=== PATIENT | female | born 1980 | race Caucasian/White ===

== ENCOUNTER 2020-01-20 07:27 | Outpatient (REF) | payer OTHER, SELFPAY ==
[2020-01-20 08:26] LABS: MANUAL DIFF FLAG NO
[2020-01-20 08:28] LABS: Basophils Percent Auto 0.7 % (0-2); Eosinophils Absolute Auto 0.2 X10*3/uL (0.0-0.4); Eosinophils Percent Auto 2.6 % (0-4); Hematocrit 39.3 % (37-47); Hemoglobin 12.9 g/dl (12.0-16.0); Imm Gran Abs Auto 0.01 X10*3/uL (0.00-0.03); Imm Gran Pct Auto 0.2 % (0.0-0.4); Lymphocytes Absolute Auto 2.2 X10*3/uL (1.2-4.9); Lymphocytes Percent Auto 37.8 % (20-40); Mean Corpuscular HGB Conc 32.8 g/dl (31.0-35.0); Mean Corpuscular Hemoglobin 28.9 pg (27.0-33.0); Mean Corpuscular Volume 87.9 fL (80-98); Mean Platelet Volume 10.4 fL (9.4-12.3); Monocytes Absolute Auto 0.4 X10*3/uL (0.1-1.2); Monocytes Percent Auto 6.2 % (2-11); Neutrophils Absolute Auto 3.1 X10*3/uL (2.0-8.3); Neutrophils Percent Auto 52.5 % (45-73); Platelet Count 170 X10*3/uL (160-400); Red Blood Count 4.47 X10*6/uL (4.20-5.50); Red Cell Distribution Width 13.7 % (11.0-16.0); White Blood Count 5.9 X10*3/uL (4.8-10.8)
[2020-01-20 08:43] LABS: Glucose Urine UA NEG (NEG); Leukocyte Esterase Urine NEG (NEG); Nitrite Urine NEG (NEG); PH 7.5 (5.0-8.0); Urine Blood NEG (NEG); Urine Ketones NEG (NEG); Urine Protein NEG (NEG-TRACE)
[2020-01-20 08:46] LABS: Appearance Urine HAZY; Color Urine YELLOW
[2020-01-20 08:58] LABS: Alanine Aminotransferase 13 U/L (0-31); Alkaline Phosphatase 74 U/L (39-117); Anion Gap 9 (12-20); Aspartate Amino Transferase 14 U/L (5-31); Bilirubin Total 0.4 mg/dL (0.0-1.0); Blood Urea Nitrogen 13 mg/dL (9-16); Calcium 8.8 mg/dL (8.4-10.2); Carbon Dioxide 34 mmol/L (22-29); Chloride 100 mmol/L (96-108); Cholesterol 232 mg/dL; Estimated Glomerular Filt Rate > 60; Glucose Random 84 mg/dL (60-115); HDL Cholesterol 79 mg/dL; LDL Cholesterol Calculated 126 mg/dl; Sodium 139 mmol/L (135-145); Total Protein 6.9 g/dL (6.5-8.0); Triglycerides 139 mg/dL
== END 2020-01-20 07:28 | disposition home or self-care (01) ==
LOC: HO.LAB 07:27
PROVIDERS: PCP Internal Medicine; Visit Provider Internal Medicine
DX: G47.33 Obstructive sleep apnea (adult) (pediatric) (principal); J45.21 Mild intermittent asthma with (acute) exacerbation; D69.6 Thrombocytopenia, unspecified; Z00.00 Encounter for general adult medical examination without abnormal findings; D70.8 Other neutropenia
CPT/HCPCS: 36415; 80053; 80061; 81003; 85025

== ENCOUNTER → 2020-02-28 08:12 | Outpatient (BNVA) | payer OTHER, SELFPAY | PROVIDERS: Visit Provider Physician Assistant | DX: Z76.89 Persons encountering health services in other specified circumstances (principal) ==

== ENCOUNTER → 2020-03-20 08:23 | Outpatient (BNVA) | payer OTHER, SELFPAY | PROVIDERS: PCP Internal Medicine; Referring Provider Internal Medicine; Visit Provider Dietitian, Registered | DX: Z76.89 Persons encountering health services in other specified circumstances (principal) ==

== ENCOUNTER → 2020-05-01 13:37 | Outpatient (BNVA) | payer OTHER, SELFPAY | PROVIDERS: PCP Internal Medicine; Visit Provider Dietitian, Registered ==

== ENCOUNTER 2021-01-29 10:16 | Outpatient (REF) | payer OTHER, SELFPAY ==
[2021-01-29 10:19] LABS: MANUAL DIFF FLAG NO
[2021-01-29 10:28] LABS: Basophils Percent Auto 0.6 % (0-2); Eosinophils Absolute Auto 0.1 X10*3/uL (0.0-0.4); Eosinophils Percent Auto 2.8 % (0-4); Hematocrit 37.2 % (37-47); Hemoglobin 12.1 g/dl (12.0-16.0); Imm Gran Abs Auto 0.01 X10*3/uL (0.00-0.03); Imm Gran Pct Auto 0.2 % (0.0-0.4); Lymphocytes Percent Auto 39.4 % (20-40); Mean Corpuscular HGB Conc 32.5 g/dl (31.0-35.0); Mean Corpuscular Hemoglobin 28.7 pg (27.0-33.0); Mean Corpuscular Volume 88.2 fL (80-98); Mean Platelet Volume 10.9 fL (9.4-12.3); Monocytes Absolute Auto 0.3 X10*3/uL (0.1-1.2); Monocytes Percent Auto 6.1 % (2-11); Neutrophils Absolute Auto 2.5 X10*3/uL (2.0-8.3); Neutrophils Percent Auto 50.9 % (45-73); Platelet Count 183 X10*3/uL (160-400); Red Blood Count 4.22 X10*6/uL (4.20-5.50); Red Cell Distribution Width 13.7 % (11.0-16.0)
[2021-01-29 10:51] LABS: Alanine Aminotransferase 12 U/L (0-31); Albumin Level 4.1 g/dL (3.5-5.0); Alkaline Phosphatase 84 U/L (39-117); Anion Gap 12 (12-20); Aspartate Amino Transferase 14 U/L (5-31); Bilirubin Total 0.4 mg/dL (0.0-1.0); Blood Urea Nitrogen 12 mg/dL (9-16); Carbon Dioxide 28 mmol/L (22-29); Chloride 101 mmol/L (96-108); Cholesterol 231 mg/dL; Estimated Glomerular Filt Rate > 60; Glucose Fasting 90 mg/dL (60-99); HDL Cholesterol 82 mg/dL; LDL Cholesterol Calculated 129 mg/dl; Potassium 3.7 mmol/L (3.3-5.1); Sodium 137 mmol/L (135-145); Total Protein 7.1 g/dL (6.5-8.0); Triglycerides 102 mg/dL
[2021-01-29 11:14] LABS: Appearance Urine CLEAR; Color Urine YELLOW; Glucose Urine UA NEG (NEG); Leukocyte Esterase Urine NEG (NEG); Nitrite Urine NEG (NEG); PH 7.5 (5.0-8.0); Urine Blood NEG (NEG); Urine Ketones NEG (NEG); Urine Protein NEG (NEG-TRACE)
== END 2021-01-29 10:17 | disposition home or self-care (01) ==
LOC: HO.LNP 10:16
PROVIDERS: Visit Provider Internal Medicine
DX: Z00.00 Encounter for general adult medical examination without abnormal findings (principal); D70.8 Other neutropenia; D69.6 Thrombocytopenia, unspecified
CPT/HCPCS: 80053; 80061; 81003; 85025

== ENCOUNTER 2022-02-11 11:21 | Outpatient (REF) | payer OTHER, SELFPAY ==
[2022-02-11 11:24] LABS: MANUAL DIFF FLAG NO
[2022-02-11 12:03] LABS: Basophils Percent Auto 0.4 % (0-2); Eosinophils Absolute Auto 0.2 X10*3/uL (0.0-0.4); Eosinophils Percent Auto 2.6 % (0-4); Hematocrit 38.3 % (37.0-47.0); Hemoglobin 12.1 g/dl (12.0-16.0); Imm Gran Abs Auto 0.02 X10*3/uL (0.00-0.03); Imm Gran Pct Auto 0.3 % (0.0-0.4); Lymphocytes Absolute Auto 2.6 X10*3/uL (1.2-4.9); Lymphocytes Percent Auto 37.8 % (20-40); Mean Corpuscular HGB Conc 31.6 g/dl (31.0-35.0); Mean Corpuscular Hemoglobin 27.3 pg (27.0-33.0); Mean Corpuscular Volume 86.5 fL (80.0-98.0); Mean Platelet Volume 11.1 fL (9.4-12.3); Monocytes Absolute Auto 0.5 X10*3/uL (0.1-1.2); Monocytes Percent Auto 7.1 % (2-11); Neutrophils Absolute Auto 3.6 x10*3/uL (2.0-8.3); Neutrophils Percent Auto 51.8 % (45-73); Platelet Count 231 X10*3/uL (160-400); Red Blood Count 4.43 X10*6/uL (4.20-5.50); White Blood Count 6.9 X10*3/uL (4.8-10.8)
[2022-02-11 12:13] LABS: Appearance Urine Cloudy; Color Urine Yellow; Glucose Urine UA Negative (Negative); Leukocyte Esterase Urine Trace (Negative); Nitrite Urine Negative (Negative); PH 6.5 (5.0-9.0); Specific Gravity - Urine 1.025 (1.005-1.025); UMIC TRIGGER UA YES; Urine Blood Negative (Negative); Urine Ketones Negative (Negative); Urine Protein Negative (Neg-Trace)
[2022-02-11 12:24] LABS: Bacteria Urine Trace (None Seen); Hyaline Casts Urine 0-2 /LPF (0-2); RBC Urine 0-2 /HPF (0-2); WBC Urine 0-5 /HPF (0-5)
[2022-02-11 12:49] LABS: Alanine Aminotransferase 14 U/L (0-31); Albumin Level 4.1 g/dL (3.5-5.0); Alkaline Phosphatase 118 U/L (39-117); Anion Gap 18 (12-20); Aspartate Amino Transferase 13 U/L (5-31); Bilirubin Total 0.3 mg/dL (0.0-1.0); Blood Urea Nitrogen 13 mg/dL (9-16); Carbon Dioxide 25 mmol/L (22-29); Chloride 99 mmol/L (96-108); Cholesterol 233 mg/dL; Estimated Glomerular Filt Rate > 60; Glucose Fasting 92 mg/dL (60-99); HDL Cholesterol 84 mg/dL; LDL Cholesterol Calculated 128 mg/dl; Potassium 3.9 mmol/L (3.3-5.1); Sodium 138 mmol/L (135-145); Total Protein 7.3 g/dL (6.5-8.0); Triglycerides 106 mg/dL
== END 2022-02-11 11:22 | disposition home or self-care (01) ==
LOC: HO.LNP 11:21
PROVIDERS: Visit Provider Internal Medicine
DX: Z00.00 Encounter for general adult medical examination without abnormal findings (principal); D69.6 Thrombocytopenia, unspecified
CPT/HCPCS: 80053; 80061; 81001; 85025

== ENCOUNTER 2023-02-12 11:52 | Outpatient (REF) | payer OTHER, SELFPAY ==
[2023-02-12 11:56] LABS: MANUAL DIFF FLAG NO
[2023-02-12 12:10] LABS: Appearance Urine Cloudy; Color Urine Yellow; Glucose Urine UA Negative (Negative); Leukocyte Esterase Urine Negative (Negative); Nitrite Urine Negative (Negative); Specific Gravity - Urine 1.025 (1.005-1.025); Urine Blood Negative (Negative); Urine Ketones Trace mg/dL (Negative); Urine Protein Negative (Neg-Trace)
[2023-02-12 12:14] LABS: Bacteria Urine 1+ (None Seen); Hyaline Casts Urine 0-2 /LPF (0-2); WBC Urine 0-5 /HPF (0-5)
[2023-02-12 12:15] LABS: Basophils Percent Auto 0.6 % (0-2); Eosinophils Absolute Auto 0.2 X10*3/uL (0.0-0.4); Eosinophils Percent Auto 2.8 % (0-4); Hematocrit 36.3 % (37.0-47.0); Hemoglobin 11.5 g/dl (12.0-16.0); Imm Gran Abs Auto 0.01 X10*3/uL (0.00-0.03); Imm Gran Pct Auto 0.1 % (0.0-0.4); Lymphocytes Absolute Auto 2.4 X10*3/uL (1.2-4.9); Lymphocytes Percent Auto 34.8 % (20-40); Mean Corpuscular HGB Conc 31.7 g/dl (31.0-35.0); Mean Corpuscular Hemoglobin 25.9 pg (27.0-33.0); Mean Corpuscular Volume 81.8 fL (80.0-98.0); Mean Platelet Volume 11.4 fL (9.4-12.3); Monocytes Absolute Auto 0.4 X10*3/uL (0.1-1.2); Monocytes Percent Auto 5.8 % (2-11); Neutrophils Absolute Auto 3.8 x10*3/uL (2.0-8.3); Neutrophils Percent Auto 55.9 % (45-73); Platelet Count 220 X10*3/uL (160-400); Red Blood Count 4.44 X10*6/uL (4.20-5.50); Red Cell Distribution Width 15.2 % (11.0-16.0); White Blood Count 6.9 X10*3/uL (4.8-10.8)
[2023-02-12 12:23] LABS: Alanine Aminotransferase 11 U/L (0-31); Albumin Level 3.9 g/dL (3.5-5.0); Alkaline Phosphatase 125 U/L (39-117); Anion Gap 12 (12-20); Aspartate Amino Transferase 12 U/L (5-31); Bilirubin Total 0.3 mg/dL (0.0-1.0); Blood Urea Nitrogen 10 mg/dL (9-16); Calcium 8.9 mg/dL (8.4-10.2); Carbon Dioxide 29 mmol/L (22-29); Chloride 100 mmol/L (96-108); Cholesterol 223 mg/dL (<200); Estimated Glomerular Filt Rate > 60; Glucose Fasting 88 mg/dL (60-99); HDL Cholesterol 77 mg/dL (>40); LDL Cholesterol Calculated 120 mg/dL (<100); Potassium 3.7 mmol/L (3.3-5.1); Sodium 137 mmol/L (135-145); Total Protein 7.3 g/dL (6.5-8.0); Triglycerides 130 mg/dL (<150)
== END 2023-02-12 11:53 | disposition home or self-care (01) ==
LOC: HO.LNP 11:52
PROVIDERS: Visit Provider Internal Medicine
DX: Z00.00 Encounter for general adult medical examination without abnormal findings (principal); D69.6 Thrombocytopenia, unspecified
CPT/HCPCS: 80053; 80061; 81001; 85025

== ENCOUNTER 2023-02-19 10:19 | Outpatient (REF) | payer OTHER, SELFPAY ==
[2023-02-19 10:43] LABS: Appearance Urine Clear; Color Urine Yellow; Glucose Urine UA Negative (Negative); Leukocyte Esterase Urine Negative (Negative); Nitrite Urine Negative (Negative); Urine Blood Negative (Negative); Urine Ketones Negative (Negative); Urine Protein Negative (Neg-Trace)
== END 2023-02-19 10:20 | disposition home or self-care (01) ==
LOC: HO.LNP 10:19
PROVIDERS: Visit Provider Internal Medicine
DX: R31.9 Hematuria, unspecified (principal)
CPT/HCPCS: 81003

== ENCOUNTER 2023-03-05 10:04 | Outpatient (REF) | payer OTHER, SELFPAY ==
--- NOTE | ~2023-03-05 | FL_ITS ---
EXAMINATION: XR FLUOROSCOPY UPPER GI WITH AIR CLINICAL INFORMATION: Gastroesophageal reflux. History of gastric sleeve. COMPARISON: None TECHNIQUE: Fluoroscopic air contrast upper GI examination was performed utilizing standard techniques with thin and thick barium and effervescent granules. Numerous spot images were obtained. FINDINGS: Dual and single contrast images of the esophagus demonstrate normal caliber, contour, and mucosal pattern. No evidence of stricture, mass, or ulcerations identified. Esophageal peristalsis was extremely disordered. A small type I hiatal hernia is present. There is significant gastroesophageal reflux up to the thoracic inlet. Dual contrast and single contrast images of the stomach demonstrated a contour consistent with the patient's history of a sleeve gastrectomy. Just subjacent to the hiatus hernia, there is a rightward oval filling defect which persists on all images. Cannot exclude mass or polyp. Contrast freely passed into the gastric antrum and duodenal bulb without delay. Single and air-contrast images of the duodenal bulb demonstrate no abnormality. The duodenal sweep has a normal appearance, course, and mucosal fold appearance. The imaged proximal jejunum has a normal fold pattern and caliber. FLUOROSCOPY TIME: 3 minutes 15 seconds Number of Spot Images: 9 Number of Cine: 8 DOSE AREA PRODUCT: 2297 uGy-m2 (microgray-meter squared) FL/FL upper GI series IMPRESSION: 1. Prior sleeve gastrectomy. Filling defect just distal to the hiatus hernia, may represent mass or polyp. EGD may be of benefit. 2. Mild to moderate-sized type I hiatal hernia. 3. Severe gastroesophageal reflux. 4. Patulous esophagus. Extremely abnormal esophageal motility. This procedure was performed by Faustino Wooten PA-C, and supervised by Dr. Rey
== END 2023-03-05 10:05 | disposition home or self-care (01) ==
LOC: HO.XRAY 10:04
PROVIDERS: PCP Internal Medicine; Visit Provider Internal Medicine
DX: R12 Heartburn (principal)
CPT/HCPCS: 74240

== ENCOUNTER → 2023-03-05 10:08 | Outpatient (BNV) | payer OTHER, SELFPAY | PROVIDERS: PCP Internal Medicine; Visit Provider Radiology Diagnostic Radiology | DX: K44.9 Diaphragmatic hernia without obstruction or gangrene (principal); K21.9 Gastro-esophageal reflux disease without esophagitis; K22.4 Dyskinesia of esophagus; Z90.3 Acquired absence of stomach [part of]; Z98.84 Bariatric surgery status | CPT/HCPCS: 74246 ==

== ENCOUNTER 2023-03-05 12:37 | Outpatient (AMB) | payer OTHER, SELFPAY ==
--- NOTE | 2023-03-05 13:16 | A.OFFVIS_ITS ---
Intake Intake Visit Reasons: OV-Right elbow pain/DOS:unknown? Intake Note: This is a 42 year old female who had surgery approximately 4 years ago and a pin placed in her elbow per the patient. She is experiencing numbness and tingling in her right hand and pain radiating down from her elbow. Range of motion is effected and she reports locking in that elbow. Allergies Sulfa (Sulfonamide Antibiotics) [SULFA (SULFONAMIDE ANTIBIOTICS)] Allergy (In termediate, Unverified 03/05/23 13:18) HIVES sulfa drugs Allergy (Mild, Uncoded 03/05/23 13:18) Rash Medication List - Last Reconciled 03/05/23 by Negar Delatorre RN cetirizine (Zyrtec) 10 mg PO DAILY PRN sertraline 25 mg PO DAILY HPI OV-Right elbow pain/DOS:unknown? HPI Details Felisa is a 42 year old woman who presents with complaints of right elbow pain & right hand numbness. She reports having surgery on her elbow in ~2018, and says she still has a pin in place. She complains of pain with elbow ROM, which she says radiates down into her hand. She also says her elbow occasionally locks when moving it. She complains of numbness in her right hand. [facility] Medical History (Updated 03/05/23 @ 13:24 by Jamari Camacho) Hx of pilonidal cyst Intestinal malabsorption following gastrectomy Obesity (BMI 30-39.9) Hx of pilonidal cyst Surgical History (Updated 01/08/23 @ 15:03 by Melanie Gonzalez) History of sleeve gastrectomy History of open reduction and internal fixation (ORIF) procedure Hx of carpal tunnel repair S/P laparoscopic sleeve gastrectomy History of sleeve gastrectomy History of open reduction and internal fixation (ORIF) procedure Hx of carpal tunnel repair Family History (System 01/08/23 @ 15:03 by Melanie Gonzalez) Father No problems noted. Mother No problems noted. Son No problems noted. Daughter No problems noted. Mother No problems noted. Father No problems noted. Son No problems noted. Daughter No problems noted. Social History (System 01/08/23 @ 15:03 by Melanie Gonzalez) Alcohol intake: current Alcohol intake frequency: a few times a week Alcohol type: wine Review of Systems Const All systems reviewed & are unremarkable except as noted in HPI and below Physical Exam Const General: no acute distress, alert and awake Orientation/consciousness: patient oriented x3 HEENT Head: Yes normocephalic and Yes atraumatic Eyes EOM: EOMs intact bilaterally Resp Effort & Inspection: normal respiratory effort and able to speak in complete sentences Cardio Jugular venous distension: no JVD Skin General skin exam: turgor normal Rashes: no rashes Neuro General: patient oriented x3 Extrem Other: Right Arm: No block to roation mild ttp just distal to radial head no effusion =/- Tinels at cubital tunnel Psych Appearance: grossly normal Affect: normal affect Attitude: cooperative Results Reviewed Results Reviewed: I personally reviewed relevant radiographs Radial head screw in place iwth no hardware complications but there is an ossicle distal to joint, chronic Assessment & Plan Assessment & Plan (1) Right elbow pain: Code(s): M25.521 - Pain in right elbow Plan: This is a 42 year old woman with right elbow pain, with a hx of ORIF in ~2018. She has occasional catching which localizes on exam to the extra-articualar ossicle and this is not particularly problematic for her. The ulnar sided numbness is new and if this worsens she will return to see me but at this time it is mild and she does not want an EMG/NCV. (2) Numbness and tingling in right hand: Code(s): R20.0 - Anesthesia of skin; R20.2 - Paresthesia of skin Plan: Numbness in her right hand. Orders: Orders XR elbow RT 2V 03/05/23 M25.529 - Pain in unspecified elbow Coding Level of Care Code Est Pt Level 4 (25996) Diagnoses Right elbow pain M25.521 Numbness and tingling in right hand R20.0; R20.2
== END 2023-03-05 14:01 | disposition home or self-care (01) ==
PROVIDERS: PCP Internal Medicine; Visit Provider Orthopaedic Surgery
DX: M25.521 Pain in right elbow (principal); R20.0 Anesthesia of skin; R20.2 Paresthesia of skin
CPT/HCPCS: 99213

== ENCOUNTER 2023-03-05 12:47 | Outpatient (REF) | payer OTHER, SELFPAY ==
--- NOTE | ~2023-03-05 | XR_ITS ---
EXAMINATION: XR ELBOW, RIGHT CLINICAL INFORMATION: Pain. COMPARISON: None available. TECHNIQUE: AP, lateral, and oblique views of the right elbow. FINDINGS: An orthopedic fixator screws again identified within the right radial head. No radial head fracture is noted. There is heterotopic bone formation again seen lateral to the radial head. No right elbow joint effusion is seen. No focal soft tissue swelling, gas or foreign body is seen. XR/XR elbow RT 2V IMPRESSION: A radial head fracture line is now poorly seen status-post ORIF. Heterotopic bone formation is noted lateral to the radial head.
== END 2023-03-05 12:48 | disposition home or self-care (01) ==
LOC: HO.HOSX 12:47
PROVIDERS: Visit Provider Orthopaedic Surgery
DX: M25.521 Pain in right elbow (principal)
CPT/HCPCS: 73070

== ENCOUNTER 2023-04-22 10:21 | Outpatient (AMB) | payer OTHER, SELFPAY ==
--- NOTE | 2023-04-22 10:11 | MHC.OFFVISWM ---
Intake VS Expanded 04/22/23 10:17 Height 5 ft 5 in Weight 280 lb BMI 46.6 Intake Visit Reasons: (TELEPHONE) PO LSG 07/21/18 Allergies Sulfa (Sulfonamide Antibiotics) [SULFA (SULFONAMIDE ANTIBIOTICS)] Allergy (Intermediate, Unverified 03/05/23 13:18) HIVES sulfa drugs Allergy (Mild, Uncoded 03/05/23 13:18) Rash Medication List - Last Reconciled 04/22/23 by AMI Colindres cetirizine (Zyrtec) 10 mg PO DAILY PRN omeprazole 40 mg PO DAILY sertraline 25 mg PO DAILY HPI HPI Comments History of Present Illness Details This?is a?42?yo female who is s/p LSG 07/21/[address] Chaney.?Has not been seen in this office in 3 years. No complaints of nausea, emesis, abdominal pain, or constipation. Pt reports an increase in heartburn recently, started on omeprazole 40mg daily. Started to worsen in the past 6 months. Did have heartburn prior to surgery but worse now. PCP ordered UGI. Nonsmoker, no EtOH. Present meal plan includes: not following a meal plan, reports weight gain PFSH Medical History (Updated 04/22/23 @ 10:37 by AMI Colindres) Hx of pilonidal cyst Intestinal malabsorption following gastrectomy Obesity (BMI 30-39.9) Hx of pilonidal cyst Surgical History (Updated 01/08/23 @ 15:03 by Melanie Gonzalez) History of sleeve gastrectomy History of open reduction and internal fixation (ORIF) procedure Hx of carpal tunnel repair S/P laparoscopic sleeve gastrectomy History of sleeve gastrectomy History of open reduction and internal fixation (ORIF) procedure Hx of carpal tunnel repair Family History (System 01/08/23 @ 15:03 by Melanie Gonzalez) Father No problems noted. Mother No problems noted. Son No problems noted. Daughter No problems noted. Mother No problems noted. Father No problems noted. Son No problems noted. Daughter No problems noted. Social History (System 01/08/23 @ 15:03 by Melanie Gonzalez) Alcohol intake: current Alcohol intake frequency: a few times a week Alcohol type: wine Results Reviewed Results Reviewed: Ordering Physician: Sal Young MD Date of Service: 03/05/23 Procedure(s): FL upper GI series Accession Number(s): [id number] cc: Sal Young MD~ EXAMINATION: XR FLUOROSCOPY UPPER GI WITH AIR CLINICAL INFORMATION: Gastroesophageal reflux. History of gastric sleeve. COMPARISON: None TECHNIQUE: Fluoroscopic air contrast upper GI examination was performed utilizing standard techniques with thin and thick barium and effervescent granules. Numerous spot images were obtained. FINDINGS: Dual and single contrast images of the esophagus demonstrate normal caliber, contour, and mucosal pattern. No evidence of stricture, mass, or ulcerations identified. Esophageal peristalsis was extremely disordered. A small type I hiatal hernia is present. There is significant gastroesophageal reflux up to the thoracic inlet. Dual contrast and single contrast images of the stomach demonstrated a contour consistent with the patient's history of a sleeve gastrectomy. Just subjacent to the hiatus hernia, there is a rightward oval filling defect which persists on all images. Cannot exclude mass or polyp. Contrast freely passed into the gastric antrum and duodenal bulb without delay. Single and air-contrast images of the duodenal bulb demonstrate no abnormality. The duodenal sweep has a normal appearance, course, and mucosal fold appearance. The imaged proximal jejunum has a normal fold pattern and caliber. FLUOROSCOPY TIME: 3 minutes 15 seconds Number of Spot Images: 9 Number of Cine: 8 DOSE AREA PRODUCT: 2297 uGy-m2 (microgray-meter squared) FL/FL upper GI series IMPRESSION: 1. Prior sleeve gastrectomy. Filling defect just distal to the hiatus hernia, may represent mass or polyp. EGD may be of benefit. 2. Mild to moderate-sized type I hiatal hernia. 3. Severe gastroesophageal reflux. 4. Patulous esophagus. Extremely abnormal esophageal motility. Assessment & Plan Assessment & Plan (1) S/P laparoscopic sleeve gastrectomy: Code(s): Z98.84 - Bariatric surgery status (2) GERD (gastroesophageal reflux disease): Code(s): K21.9 - Gastro-esophageal reflux disease without esophagitis (3) Morbid obesity: Code(s): E66.01 - Morbid (severe) obesity due to excess calories Plan Pt reports increasing reflux symptoms, no formal meal plan, and significant weight gain since last office visit 3 years ago. We discussed that excess weight and breakfast 9am-11am- [employer] powder 1/2 scoop in 8oz [employer] milk lunch 1-3pm same shake Italian yogurt 5pm dinner 7pm- 8 forks protein, up to 8 forks veg Discussed reflux triggers, pace of eating and drinking to minimize symptoms. Continue PPI. Will discuss UGI results with Dr Crawley to consider endoscopy. Will also order vitamin labs, pt has had other recent labs done. Patient is morbidly obese with worsening reflux symptoms and is not considered stable at this time. I spent a total of 30 minutes reviewing/updating records, examining the patient and counseling the patient on weight management as detailed above. Telehealth Telehealth Location of provider rendering services: practice address Location of patient: address on file Patient Identification confirmed using: Name, : Yes Telehealth method: voice only Patient verbally consented to treatment: Yes Patient verbally consented to billing insurance company: Yes Patient informed of any privacy concerns related to visit: Yes Minutes spent on Phone/Video with Pt.: 18 Coding Level of Care Code Tele Est Pt Level 4 (04356) Diagnoses S/P laparoscopic sleeve gastrectomy Z98.84 GERD (gastroesophageal reflux disease) K21.9 Morbid obesity E66.01
[2023-04-22 10:17] VITALS: BMI 46.6
--- OUTSIDE RECORDS SUMMARY | 2023-04-22 10:24 | XMS_ITS | Patient Health Record ---
Author Name Unknown Organization Sal Young MD Address [address] [place], [place] [id number] Care Team Providers Care Director Of Early Childhood Name Role Phone Sal Young Primary Care Provider ALLERGIES Allergen (clinical drug ingredient) Drug/Non Drug Allergy documented on EMR Reaction Allergy Type Onset Date Status sulfamethoxazole / trimethoprim Bactrim DS rash Drug Allergy Active RESULTS Component Value Reference Range Notes Zari Cervantes Reviewed date:02/12/2023 12:26:08 PM Interpretation: Performing Lab:[facility], [address] [place] [phone] Notes/Report: Zari Cervantes See Note Specimen held untested for 24 hours; Call to request Chemistry testing. Complete Blood Count Auto Di ff Reviewed date:02/12/2023 12:35:01 PM Interpretation: Performing Lab:[facility], [address] [place] [phone] Notes/Report: White Blood Count 6.9 4.8-10.8 X10*3/uL Red Blood Count 4.44 4.20-5.50 X10*6/uL Hemoglobin 11.5 12.0-16.0 g/dl Hematocrit 36.3 37.0-47.0 % Mean Corpuscular Volume 81.8 80.0-98.0 fL Mean Corpuscular Hemoglobin 25.9 27.0-33.0 pg Mean Corpuscular HGB Conc 31.7 31.0-35.0 g/dl Red Cell Distribution Width 15.2 11.0-16.0 % Platelet Count 220 160-400 X10*3/uL Mean Platelet Volume 11.4 9.4-12.3 fL Neutrophils Percent Auto 55.9 45-73 % Imm Gran Pct Auto 0.1 0.0-0.4 % Lymphocytes Percent Auto 34.8 20-40 % Monocytes Percent Auto 5.8 2-11 % Eosinophils Percent Auto 2.8 0-4 % Basophils Percent Auto 0.6 0-2 % NRBC Pct Auto 0.0 0.0-0.2 /100WBC Neutrophils Absolute Auto 3.8 2.0-8.3 x10*3/u L Imm Gran Abs Auto 0.01 0.00-0.03 X10*3/uL Lymphocytes Absolute Auto 2.4 1.2-4.9 X10*3/u L Monocytes Absolute Auto 0.4 0.1-1.2 X10*3/uL Eosinophils Absolute Auto 0.2 0.0-0.4 X10*3/u L Basophils Absolute Auto 0.0 0.0-0.2 X10*3/uL NRBC Abs Auto 0.000 0.0-0.012 X10*3/uL Comprehensive [place]. Panel Fa st Reviewed date:02/12/2023 12:33:55 PM Interpretation: Performing Lab:[facility], [address] [place] [phone] Notes/Report: Sodium 137 135-145 mmol/L Potassium 3.7 3.3-5.1 mmol/L Chloride 100 96-108 mmol/L Carbon Dioxide 29 22-29 mmol/L Anion Gap 12 12-20 Blood Urea Nitrogen 10 9-16 mg/dL Creatinine 0.72 0.5-1.4 mg/dL Estimated Glomerular Filt Rate > 60 NOTE: For -[place] individuals, multiply the result by 1.210. Chronic Kidney Disease: Estimated GFR < 60 mL/min/1.73m2 Severe Kidney Disease: Estimated GFR < 15 mL/min/1.73m2 Glucose Fasting 88 60-99 mg/dL Calcium 8.9 8.4-10.2 mg/dL Bilirubin Total 0.3 0.0-1.0 mg/dL Aspartate Amino Transferase 12 5-31 U/L Alanine Aminotransferase 11 0-31 U/L Total Protein 7.3 6.5-8.0 g/dL Albumin Level 3.9 3.5-5.0 g/dL Alkaline Phosphatase 125 39-117 U/L Lipid Panel Reviewed date:02/12/2023 12:27:11 PM Interpretation: Performing Lab:[facility], [address] [place] [phone] Notes/Report: Triglycerides 130 <150 mg/dL Desirable Triglyceride: less than 150 mg/dL Borderline High Triglyceride 150-199 mg/dL High Triglyceride: 200-499 mg/dL Very High Triglyceride: greater than or equal to 5OO mg/dL Cholesterol 223 <200 mg/dL Desirable Cholesterol: less than 200 mg/dL Borderline High Cholesterol: 200-239 mg/dL High Cholesterol: greater than 239 mg/dL LDL Cholesterol Calculated 120 <100 mg/dL Desirable LDL: less than 100 mg/dL Near Optimal/Above Optimal LDL: 110-129 mg/dL Borderline High LDL: 130-159 mg/dL High LDL: 160-189 mg/dL Very High LDL: greater than or equal to 190 mg/dL HDL Cholesterol 77 >40 mg/dL Desirable HDL: greater than 40 mg/dL Note: This HDL assay may give artificially low results in patients with liver disease. UA ClnCatch+Micro w/rflx Cul t Reviewed date:02/16/2023 08:54:09 AM Interpretation: Performing Lab:[facility], [address] [place] [phone] Notes/Report: [id number] Urine, Clean Catch Color Urine Yellow Appearance Urine Cloudy PH 6.0 5.0-9.0 Glucose Urine UA Negative Negative mg/dL Urine Blood Negative Negative Specific [place] - Urine 1.025 1.005-1.025 Urine Protein Negative Neg-Trace mg/dL Urine Ketones Trace Negative mg/dL Nitrite Urine Negative Negative Leukocyte Esterase Urine Negative Negative RBC Urine 3-5 0-2 /HPF WBC Urine 0-5 0-5 /HPF Squamous Epithelial Cell Urine 11-20 0-2 /HPF Bacteria Urine 1+ None Seen Hyaline Casts Urine 0-2 0-2 /LPF UA CC w/rflx Micro + Cult Reviewed date:02/19/2023 12:16:02 PM Interpretation: Performing Lab:[facility], [address] [place] [phone] Notes/Report: Urine, Clean Catch Color Urine Yellow Appearance Urine Clear PH 6.0 5.0-9.0 Glucose Urine UA Negative Negative mg/dL Urine Blood Negative Negative Specific [place] - Urine 1.020 1.005-1.025 Urine Protein Negative Neg-Trace mg/dL Urine Ketones Negative Negative mg/dL Nitrite Urine Negative Negative Leukocyte Esterase Urine Negative Negative FL upper GI series Reviewed date:03/16/2023 02:17:15 PM Interpretation:see back 03-16-23 Performing Lab: Notes/Report: [address] [address] Fluoroscopy Report Signed Patient: Felisa Damon MR#: [id number] : 1980 Acct:[id number] Age/Sex: 42 / F ADM Date: 03/05/23 Loc: HO.REILLYAY Attending Dr: Sal Young MD Ordering Physician: Sal Young MD Date of Service: 03/05/23 Procedure(s): FL upper GI series Accession Number(s): [id number] cc: Sal Young MD EXAMINATION: XR FLUOROSCOPY UPPER GI WITH AIR CLINICAL INFORMATION: Gastroesophageal reflux. History of gastric sleeve. COMPARISON: None TECHNIQUE: Fluoroscopic air contrast upper GI examination was performed utilizing standard techniques with thin and thick barium and effervescent granules. Numerous spot images were obtained. FINDINGS: Dual and single contrast images of the esophagus demonstrate normal caliber, contour, and mucosal pattern. No evidence of stricture, mass, or ulcerations identified. Esophageal peristalsis was extremely disordered. A small type I hiatal hernia is present. There is significant gastroesophageal reflux up to the thoracic inlet. Dual contrast and single contrast images of the stomach demonstrated a contour consistent with the patient's history of a sleeve gastrectomy. Just subjacent to the hiatus hernia, there is a rightward oval filling defect which persists on all images. Cannot exclude mass or polyp. Contrast freely passed into the gastric antrum and duodenal bulb without delay. Single and air-contrast images of the duodenal bulb demonstrate no abnormality. The duodenal sweep has a normal appearance, course, and mucosal fold appearance. The imaged proximal jejunum has a normal fold pattern and caliber. FLUOROSCOPY TIME: 3 minutes 15 seconds Number of Spot Images: 9 Number of Cine: 8 DOSE AREA PRODUCT: 2297 uGy-m2 (microgray-meter squared) FL/FL upper GI series IMPRESSION: 1. Prior sleeve gastrectomy. Filling defect just distal to the hiatus hernia, may represent mass or polyp. EGD may be of benefit. 2. Mild to moderate-sized type I hiatal hernia. 3. Severe gastroesophageal reflux. 4. Patulous esophagus. Extremely abnormal esophageal motility. This procedure was performed by Faustino Wooten PA-C, and supervised by Dr. 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 Reason right elbow pain Diagnosis 1 Right elbow pain (M2 5.521) Referral Organization Sal Young MD Referring Provider First Name Sal Referring Provider Last Name Hector Referring Provider Speciality Internal M edicine Referred Provider Manuel Dickerson Referred Provider Specialty Orthopedic S urgery General Notes Kathie Wilkes 10:02:13 AM EST > patient of aware of appt Referral Priority Routine Referral Appointment Date 03/05/2023 MEDICATIONS Medication SIG (Take, Route, Frequency, Duration) Notes Start Date End Date Status Meclizine HCl 25 MG 1 tablet as needed Orally Once a day Not-Taking Ventolin HFA 108 (90 Base) MCG/ACT 2 puffs as needed Inhalation every 6 hrs for 30 days 01/25/2018 Not-Taking Sprintec 28 0.25-35 MG-MCG TAKE 1 TABLET BY MOUTH EVERY DAY Oral for 28 Active Omeprazole 40 MG 1 capsule 30 minutes before morning meal Orally Once a day for 30 day(s) 03/16/2023 Active Dyazide 37.5-25 MG 1 capsule in the mor yris Orally Once a day Active ZyrTEC Allergy 10 MG 1 tablet Orally Onc e a day Active Sertraline HCl 50 MG TAKE 1 TABLET BY [facility] DAILY. Active IMMUNIZATIONS Vaccine Route Administration Date Status Comme nts Flu Vaccine Unknown 06/09/2011 Administered TDaP Unknown 03/10/2012 Administered Flu Vaccine IM Intramuscular 03/08/2015 Administered pt re cieved the vaccine at [facility] in [place]. Fluarix Quadrivalent IM Intramuscular 12/19/2016 Administe red Fluarix Quadrivalent IM Intramuscular 12/14/2017 Administe red Fluarix Quadrivalent IM Intramuscular 01/03/2019 Administe red Tetanus Unknown 03/10/2012 Administered Fluarix Quadrivalent IM Intramuscular 01/26/2020 Administe red Fluarix Quadrivalent IM Intramuscular 01/29/2021 Administe red SARS-COV-2 Pfizer Unknown 08/01/2020 Administered SARS-COV-2 Pfizer Unknown 08/22/2020 Administered SARS-COV-2 Pfizer Unknown 04/10/2021 Administered Fluarix Quadrivalent IM Intramuscular 02/11/2022 Administe red Fluarix Quadrivalent IM Intramuscular 02/12/2023 Administe red Flu Vaccine Unknown 06/26/2014 Refused Tetanus Unknown 03/10/2012 Pending SOCIAL HISTORY Tobacco Use: Social History Observation Description Date Details (start date - stop date) Never Smoker NA - NA Sex Assigned At : Social History Observation Description Sex Assigned At Unknown Tobacco Use/Smoking Question Answer Notes Patient is a nonsmoker Additional Findings: Tobacco Non-User Cu rrent non-smoker, currently using no form of tobacco Alcohol Screen Question Answer Notes Did you have a drink containing alcohol in the p ast year? No Points 0 Interpretation Negative PROBLEMS Problem Type ICD Code Onset Dates Problem Status W/U Status Risk SNOMED Code Notes Problem Thrombocytopenia (D69.6) Active confirmed 820212988 Problem Anxiety (F41.9) Active confirmed 334327 02 Problem Other neutropenia (D70.8) Active confirmed 563035117 Problem Gastroesophageal reflux disease without esophagitis (K21.9) Active confirmed 691866982 Problem Esophageal dysmotility (K22.4) Active confirmed 496671039 Problem Carpal tunnel syndrome of left wrist (G56.02) Active confirmed 42757547 Problem CLARA (obstructive sleep apnea) (G47.33) Active confirmed 32795063 Problem BMI 40.0-44.9, adult (Z68.41) Active confirmed 093678026 Problem Temporary low platelet count (D69.6) Active confirmed 960978427 Problem Mild intermittent asthmatic bronchitis with acute exacerbation (J45.21) Active confirmed 869111658 Problem 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 39629415 VITAL SIGNS Blood pressure diastolic 80 mm Hg 03/16/2023 shola ght is up 4 pounds since 02-19-23 Height 66.50 in 03/16/2023 weight is up 4 pounds since 02-19-23 Blood pressure systolic 126 mm Hg 03/16/2023 weig ht is up 4 pounds since 02-19-23 Weight 276 lbs 03/16/2023 weight is up 4 pounds since 02-19-23 BMI 43.88 kg/m2 03/16/2023 weight is up 4 pounds since 02-19-23 Encounters Encounter Location Date Provider Diagnosis Sal Young MD [address] [place] [id number] 02/19/2023 Sal Young Hematuria R31.9 ; Annual physical exam Z00.00 ; CLARA (obstructive sleep apnea) G47.33 ; BMI 40.0-44.9, adult Z68.41 ; Heart burn R12 ; Nerve pain M79.2 and Anxiety F41.9 Sal Young MD [address] [place] [id number] 03/16/2023 Sal Young Esophageal dysmotili ty K22.4 ; Lesion of esophagus K22.9 and Gastroesophageal reflux disease without esophagitis K21.9 Sal Young MD [address] [place] [id number] 02/12/2023 Sal Young Thrombocytopenia D69 .6 ; Blood tests for routine general physical examination Z00.00 and Encounter for immunization Z23 Sal Young MD [address] [place] [id number] 08/18/2022 Sal Young Rash R21 ; Mild intermittent asthmatic bronchitis with acute exacerbation J45.21 and Anxiety F41.9 Sal Young MD [address] [phone] 07/28/2022 Sal Young Rash R21 ASSESSMENTS Encounter Date Diagnosis Assessment Notes Treatment Notes Treatment Clinical Notes 02/19/2023 Hematuria (ICD-10 - R31.9) pending labs, will continue to monitor 02/19/2023 Annual physical exam (ICD-10 - Z00.00) labs reviewed and discussed with patient 03/16/2023 Esophageal dysmotili ty (ICD-10 - K22.4) is probably related to the band, discussed results of GI series with patient 03/16/2023 Lesion of esophagus (ICD-10 - K22.9) needs endoscope, pending diagnostic studiy/ patient has had sleeve surgery for obesity and wishes to start with those surgeons. she is goiing to call them and is aware that whe needs endoscopy. if they don't arrange that to call me and we will arrange it 02/12/2023 Thrombocytopenia (ICD-10 - D69.6) 02/12/2023 Blood tests for routine general physical examination (ICD-10 - Z00.00) 08/18/2022 Rash (ICD-10 - R21) may be r elated to dyazide sun sensitivity 08/18/2022 Mild intermittent asthmatic bronchitis with acute exacerbation (ICD-10 - J45.21) doing great with no problems 07/28/2022 Rash (ICD-10 - R21) increase her antihistamine to 2 pills zyrtec 02/19/2023 CLARA (obstructive sle ep apnea) (ICD-10 - G47.33) using cpap, doing well 03/16/2023 Gastroesophageal reflux disease without esophagitis (ICD-10 - K21.9) will refer back to weight loss clinic/ patient is booking her own appt 02/12/2023 Encounter for immunization (ICD-10 - Z23) 08/18/2022 Anxiety (ICD-10 - F41.9) doing well on meds, will continue current regiment 02/19/2023 BMI 40.0-44.9, adult (ICD-10 - Z68.41) has not been to diatician since sumanth, suggested diet and exertcise 02/19/2023 Heart burn (ICD-10 - R12) get back to weight management/ called [facility], order faxed appt booked for 03-05-23, pending diagnostic testing 02/19/2023 Nerve pain (ICD-10 - M79.2) came on after sleeping wrong on her old broken elbow. will begin by referring back o dr dickerson who did the surgery 02/19/2023 Anxiety (ICD-10 - F41.9) stable, will continue current regiment PLAN OF TREATMENT Pending Test Test Name Order Date XR GI SERIES 02/19/2023 UA ClnCatch+Micro w/rflx Cult 02/19/2023 Next Appt Details Provider Name:Sal Sheldon ier, 05/22/2023 10:00:00 AM, [address] [place] [address], [address], [phone], Provider Name:Sal Sheldon ier, 02/22/2024 07:15:00 AM, [address] [place] [address], [address], [phone], Provider Name:Sal Sheldon ier, 02/29/2024 10:30:00 AM, [address] [place] [address], [address], [phone], Insurance Providers Payer Name Payer Address Payer Phone Subscriber Number Group Number Insured Name Patient Relationship to Insured Coverage Start Date Coverage End Date [employer] [address] [address] [place] [phone] [id number] Felisa Damon Self - patient is the insured MEDICAL (GENERAL) HISTORY Surgical History Surgery Date(Month/Year) ORIF Rt Radial Head - Dr. Dickerson 8
== END 2023-04-22 10:36 | disposition home or self-care (01) ==
LOC: HO.HBS 10:21
PROVIDERS: PCP Internal Medicine; Visit Provider Physician Assistant Surgical
DX: E66.01 Morbid (severe) obesity due to excess calories (principal); Z68.42 Body mass index [BMI] 45.0-49.9, adult; Z90.3 Acquired absence of stomach [part of]; Z98.84 Bariatric surgery status; K21.9 Gastro-esophageal reflux disease without esophagitis
CPT/HCPCS: 99214

== ENCOUNTER → 2023-04-22 10:21 | Outpatient (BNVA) | payer OTHER, SELFPAY | PROVIDERS: PCP Internal Medicine; Visit Provider Physician Assistant Surgical ==

== ENCOUNTER 2023-05-20 10:20 | Day surgery (SDC) | payer OTHER, SELFPAY ==
[2023-05-04 10:11] VITALS: BMI 46.6
--- NOTE | 2023-05-05 10:10 | P.CONAN_ITS ---
Documented by User: Itzel Anderson NP 05/15/23 13:48 HPI - Anesthesia Eval Consult details Narrative: 42yo F for Upper Endoscopy, 05/20/23 Hx gastric sleeve 2019 PMFSH Active Problems Active Problems: All Active Problems (Updated 04/22/23 @ 10:37 by AMI Colindres) Morbid obesity (Acute) GERD (gastroesophageal reflux disease) (Acute) Right elbow pain (Acute) Numbness and tingling in right hand (Acute) S/P laparoscopic sleeve gastrectomy (Acute) Intestinal malabsorption following gastrectomy (Acute) Obesity (BMI 30-39.9) (Acute) Past Medical History Medical History Sleep apnea Hx of pilonidal cyst Intestinal malabsorption following gastrectomy Obesity (BMI 30-39.9) Hx of pilonidal cyst Family History Family History Father No problems noted. Mother No problems noted. Son No problems noted. Daughter No problems noted. Mother No problems noted. Father No problems noted. Son No problems noted. Daughter No problems noted. Surgical History Surgical History History of sleeve gastrectomy History of open reduction and internal fixation (ORIF) procedure Hx of carpal tunnel repair Social History Social History Alcohol intake: current Alcohol intake frequency: a few times a week Alcohol type: wine Patient Tobacco Use Status: Never used Tobacco Use of substances other than those prescribed or required for medical reasons: No Are you DNR?: No Advance Directives: No Advance Directives Information Provided: Yes Meds Allergies Allergy/AdvReac Type Severity Reaction Status Date / Time Sulfa (Sulfonamide Allergy Intermediate HIVES Unverified 03/05/23 13:18 Antibiotics) [SULFA (SULFONAMIDE ANTIBIOTICS)] sulfa drugs Allergy Mild Rash Uncoded 03/05/23 13:18 Home Medications Medication Instructions Recorded Confirmed Last Taken Type cetirizine 10 mg capsule (Zyrtec) 10 mg PO DAILY PRN 03/05/23 04/22/23 Unknown History sertraline 25 mg tablet 25 mg PO DAILY 03/05/23 04/22/23 Unknown History omeprazole 40 mg capsule,delayed 40 mg PO DAILY 04/22/23 04/22/23 Unknown History release Exam Height,Weight and Vital Signs: Height 5 ft 5 in Weight 127.006 kg Pertinent Lab Results Pertinent Lab Results: Laboratory Tests 02/12/23 07:30 WBC 6.9 Hgb 11.5 L Hct 36.3 L Plt Count 220 Sodium 137 Potassium 3.7 Chloride 100 Carbon Dioxide 29 BUN 10 Creatinine 0.72 Assessment and Plan Assessment Anesthesia Assessment: Chart Reviewed Documented by User: Chyna Guillaume MD 05/20/23 12:08 [facility] Past Medical History Medical History Sleep apnea Hx of pilonidal cyst Intestinal malabsorption following gastrectomy Obesity (BMI 30-39.9) Hx of pilonidal cyst Family History Family History Father No problems noted. Mother No problems noted. Son No problems noted. Daughter No problems noted. Mother No problems noted. Father No problems noted. Son No problems noted. Daughter No problems noted. Surgical History Surgical History History of sleeve gastrectomy History of open reduction and internal fixation (ORIF) procedure Hx of carpal tunnel repair History of Problems with Anesthesia: No Social History Social History Alcohol intake: current Alcohol intake frequency: a few times a week Alcohol type: wine Patient Tobacco Use Status: Never used Tobacco Use of substances other than those prescribed or required for medical reasons: No Are you DNR?: No Advance Directives: No Advance Directives Information Provided: Yes Meds Allergies Allergy/AdvReac Type Severity Reaction Status Date / Time Sulfa (Sulfonamide Allergy Intermediate HIVES Unverified 03/05/23 13:18 Antibiotics) [SULFA (SULFONAMIDE ANTIBIOTICS)] sulfa drugs Allergy Mild Rash Uncoded 03/05/23 13:18 Home Medications Medication Instructions Recorded Confirmed Last Taken Type cetirizine 10 mg capsule (Zyrtec) 10 mg PO DAILY PRN 03/05/23 04/22/23 Unknown History sertraline 25 mg tablet 25 mg PO DAILY 03/05/23 04/22/23 Unknown History omeprazole 40 mg capsule,delayed 40 mg PO DAILY 04/22/23 04/22/23 Unknown History release Exam Airway Mallampati Class: II TM Dist: >3cm Neck ROM: Full Loose/Missing/Broken Teeth: No Heart: RRR Lungs: CTA Assessment and Plan Assessment Anesthesia Assessment: Anesthesia Plan Discussed Final Anesthetic Review History of Problems with Anesthesia: No NPO: Yes ASA Class: III Final Preanesthetic Review: Meds/Allgs Chart Reviewed, Consent Obtained/Reviewed and Anes Risks/Benef Reviewed Patient Risk: Intermediate Procedure Risk: Intermediate Anesthetic Plan Anesthetic Plan: MAC: Disposition: Standard PACU
[2023-05-18 07:31] VITALS: BMI 46.6
--- OUTSIDE RECORDS SUMMARY | 2023-05-20 10:23 | XMS_ITS | Patient Health Record ---
Author Name Unknown Organization Sal Young MD Address [address] [place], [place] [id number] Care Team Providers Care Certifed Refrigeration Operator Name Role Phone Sal Young Primary Care Provider [phone] ALLERGIES Allergen (clinical drug ingredient) Drug/Non Drug Allergy documented on EMR Reaction Allergy Type Onset Date Status sulfamethoxazole / trimethoprim Bactrim DS rash Drug Allergy Active RESULTS Component Value Reference Range Notes Zari Cervantes Reviewed date:02/12/2023 12:26:08 PM Interpretation: Performing Lab:[facility], [address] [place] [phone] Notes/Report: Zari Cervantes See Note Specimen held untested for 24 hours; Call to request Chemistry testing. Complete Blood Count Auto Di ff Reviewed date:02/12/2023 12:35:01 PM Interpretation: Performing Lab:[facility], [address] [place] [phone] Notes/Report: White Blood Count 6.9 4.8-10.8 X10*3/uL [...] NRBC Abs Auto 0.000 0.0-0.012 X10*3/uL Comprehensive [place]. Panel Fa st Reviewed date:02/12/2023 12:33:55 PM Interpretation: Performing Lab:[facility], [address] [place] [phone] Notes/Report: Sodium 137 135-145 mmol/L Potassium 3.7 3.3-5.1 mmol/L Chloride 100 96-108 mmol/L Carbon Dioxide 29 22-29 mmol/L Anion Gap 12 12-20 Blood Urea Nitrogen 10 9-16 mg/dL Creatinine 0.72 0.5-1.4 mg/dL Estimated Glomerular Filt Rate > 60 NOTE: For -[place] individuals, multiply the result by 1.210. Chronic [...] Panel Reviewed date:02/12/2023 12:27:11 PM Interpretation: Performing Lab:[facility], [address] [place] [phone] Notes/Report: Triglycerides 130 <150 mg/dL Desirable Triglyceride: [...] t Reviewed date:02/16/2023 08:54:09 AM Interpretation: Performing Lab:[facility], [address] [place] [phone] Notes/Report: [id number] Urine, Clean Catch Color Urine Yellow Appearance Urine Cloudy PH 6.0 5.0-9.0 Glucose Urine UA Negative Negative mg/dL Urine Blood Negative Negative Specific [place] - Urine 1.025 1.005-1.025 Urine Protein Negative Neg-Trace mg/dL Urine Ketones Trace Negative mg/dL Nitrite Urine Negative Negative Leukocyte Esterase Urine Negative Negative RBC Urine 3-5 0-2 /HPF WBC Urine 0-5 0-5 /HPF Squamous Epithelial Cell Urine 11-20 0-2 /HPF Bacteria Urine 1+ None Seen Hyaline Casts Urine 0-2 0-2 /LPF UA CC w/rflx Micro + Cult Reviewed date:02/19/2023 12:16:02 PM Interpretation: Performing Lab:[facility], [address] [place] [phone] Notes/Report: Urine, Clean Catch Color Urine Yellow Appearance Urine Clear PH 6.0 5.0-9.0 Glucose Urine UA Negative Negative mg/dL Urine Blood Negative Negative Specific [place] - Urine 1.020 1.005-1.025 Urine Protein Negative Neg-Trace mg/dL Urine Ketones Negative Negative mg/dL Nitrite Urine Negative Negative Leukocyte Esterase Urine Negative Negative FL upper GI series Reviewed date:03/16/2023 02:17:15 PM Interpretation:see back 03-16-23 Performing Lab: Notes/Report: [address] [address] Fluoroscopy Report Signed Patient: Felisa Damon MR#: [id number] : 1980 Acct:[id number] Age/Sex: 42 / F ADM Date: 03/05/23 Loc: HO.REILLYAY Attending Dr: Sal Young MD Ordering Physician: Sal Young MD Date of Service: 03/05/23 Procedure(s): FL upper GI series Accession Number(s): [id number] cc: Sal Young MD EXAMINATION: XR FLUOROSCOPY [...] in OV> 03/05/23 1543 DD/ 1039 TD/TT: Process Area Supervisor: REASON FOR REFERRAL Reason right elbow pain [...] 50 MG TAKE 1 TABLET BY [facility] DAILY. Active IMMUNIZATIONS Vaccine Route Administration Date Status Comme nts Flu Vaccine Unknown 06/09/2011 Administered TDaP Unknown 03/10/2012 Administered Flu Vaccine IM Intramuscular 03/08/2015 Administered pt re cieved the vaccine at [facility] [place]. Fluarix Quadrivalent IM Intramuscular 12/19/2016 Administe red [...] Code Notes Problem Thrombocytopenia (D69.6) Active confirmed 414022045 Problem Anxiety (F41.9) Active confirmed 222719 02 Problem Other neutropenia (D70.8) Active confirmed 125159738 Problem Gastroesophageal reflux disease without esophagitis (K21.9) Active confirmed 555111783 Problem Esophageal dysmotility (K22.4) Active confirmed 152972122 Problem Carpal tunnel syndrome of left wrist (G56.02) Active confirmed 32447619 Problem CLARA (obstructive sleep apnea) (G47.33) Active confirmed 44304715 Problem BMI 40.0-44.9, adult (Z68.41) Active confirmed 981966076 Problem Temporary low platelet count (D69.6) Active confirmed 447972388 Problem Mild intermittent asthmatic bronchitis with acute exacerbation (J45.21) Active confirmed 417310094 Problem 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 83599427 VITAL SIGNS Blood pressure diastolic 80 mm [...] Date Provider Diagnosis Sal Young MD [address] [place] [id number] 02/19/2023 Sal Young Hematuria R31.9 ; Annual physical exam Z00.00 ; CLARA (obstructive sleep apnea) G47.33 ; BMI 40.0-44.9, adult Z68.41 ; Heart burn R12 ; Nerve pain M79.2 and Anxiety F41.9 Sal Young MD [address] [place] [id number] 03/16/2023 Sal Young Esophageal dysmotili ty K22.4 ; Lesion of esophagus K22.9 and Gastroesophageal reflux disease without esophagitis K21.9 Sal Young MD [address] [place] [id number] 02/12/2023 Sal Young Thrombocytopenia D69 .6 ; Blood tests for routine general physical examination Z00.00 and Encounter for immunization Z23 Sal Young MD [address] [place] [id number] 08/18/2022 Sal Young Rash R21 ; Mild intermittent asthmatic bronchitis with acute exacerbation J45.21 and Anxiety F41.9 Sal Young MD [address] [id number] 07/28/2022 Sal Young Rash R21 ASSESSMENTS Encounter [...] R12) get back to weight management/ [place] [facility] [place] faxed appt booked for 03-05-23, pending diagnostic testing 02/19/2023 Nerve pain (ICD-10 - M79.2) came on after sleeping wrong on her old broken elbow. will begin by referring back o dr dickerson who did the surgery 02/19/2023 Anxiety (ICD-10 - F41.9) stable, will continue current regiment PLAN OF TREATMENT Pending Test Test Name Order Date XR GI SERIES 02/19/2023 Next Appt Details Provider Name:Sal Sheldon ier, 05/29/2023 10:45:00 AM, [address] [place] [address], [address] [place] [address], [phone], Provider Name:Sal Sheldon ier, 02/22/2024 07:15:00 AM, [address] [place] [address], Suite [facility], [place], [place], [phone], Provider Name:Sal Sheldon ier, 02/29/2024 10:30:00 AM, [address] [place] [address], [address], [phone], Insurance Providers Payer Name Payer Address Payer Phone Subscriber Number Group Number Insured Name Patient Relationship to Insured Coverage Start Date Coverage End Date R [address] [address] [place] [phone] [id number] [phone] Felisa Damon Self - patient is the insured MEDICAL (GENERAL) HISTORY Surgical History Surgery Date(Month/Year) ORIF Rt Radial Head - Dr. Dickerson 8
[2023-05-20 11:37] VITALS: BMI 46.5
[2023-05-20 11:41] VITALS: BP 127/79; PULSE 81; RESP 16; TEMP 36.8; O2SAT 95
[2023-05-20 11:45] LABS: UPreg QC Valid YES; Urine Pregnancy NEGATIVE (NEGATIVE)
--- NOTE | 2023-05-20 11:47 | MHC.SHP ---
Pre-Procedural Eval Section A - 24 Hr Update-Section A only Date of Service: 05/20/23 The patient is an INPATIENT: No The patient has been examined within 24 hours of the surgical procedure. The History & Physical has been completed within 30 days and I have reviewed it.: Yes Section B - Complete if H&P > 30 days Chief Complaint: Gastro-esophageal reflux disease without esophagit Relevant Family History (Specify if Yes): No Relevant Social History: None Present Medications: None Medical History: No relevant PMH History of Previous Operations: Relevant previous surgery/procedure and date(s) (Laparoscopic sleeve gastrectomy) Allergies: Allergies Allergy/AdvReac Type Severity Reaction Status Date / Time Sulfa (Sulfonamide Allergy Intermediate HIVES Unverified 03/05/23 13:18 Antibiotics) [SULFA (SULFONAMIDE ANTIBIOTICS)] sulfa drugs Allergy Mild Rash Uncoded 03/05/23 13:18 Review of Systems Sugical H&P ROS: Negative: Constitution, Cardiovascular, Respiratory, Neurological, Psychiatric, Hem-Onc, Allergic/Immunologic, Genitourinary, Musculoskeletal, Integumentary, Endocrine and Eyes/Ears/Nose/Throat and Yes, Specify: Gastrointestinal (GERD) Exam Surgical H&P Exam: Normal: HEENT, Normal: Heart, Normal: Lungs, Normal: Extremities, Normal: Abdomen, Normal: Skin and Normal: Neurological Plan Diagnosis/Plan: Unchanged (EGD to assess the anatomy of the sleeve and the cause of GERD. Risks and complications were discussed with the patient in advance including bleeding and perforation.) I have reviewed the history and physical and performed a pertinent physical examination on my patient. No changes have occurred unless specified. Time Spent With Patient Time: Total time managing care of this patient today ____ minutes.
--- NOTE | 2023-05-20 11:48 | P.BOP_ITS ---
Brief Operative Note Date of Service: 05/20/23 Pre-op diagnosis: GERD, s/p sleeve gastrectomy Post-op diagnosis: same Procedure: PROCEDURE DATE: 05/20/2023 PREOPERATIVE DIAGNOSIS: GERD, weight regain, s/p sleeve gastrectomy POSTOPERATIVE DIAGNOSIS: ?Same as above. 1) moderate hiatal hernia, 2) Esophagitis II, 3) Bile reflux PROCEDURE: Oooqjvju-ngnhrb-xpnnoojkuxza with biopsies Surgeon: ?Yariel De La Cruz M.D.. Ph.D. Regional Operations Director: None ? Anesthesia: IV sedation Estimated blood loss: ?Minimal FINDINGS AND PROCEDURE: ? OPERATIVE INDICATIONS: ?The patient is a 42 year old female known to me who underwent a laparoscopic sleeve gastrectomyby Dr. Chaney about 4 years ago. The patient had reportedly a good weight loss initially but has regained 100 lbs and has persistent GERD. She states she had GERD before her sleeve and it did not improve at all after the sleeve. At present it is worse than it was before the sleeve. Based on this information I recommended an upper endoscopy to evaluate the patient's symptoms. Risks and complications of the surgery were discussed with the patient in advance particularly the possibility of perforation or bleeding that may require surgical intervention. The patient understood the risks and was in agreement with the plan. ? PROCEDURE: After informed consent was obtained by the patient, the patient was ?transferred to the Operating Room and was placed in the supine position.? After successful induction of IV sedation, a mouth block was inserted and the patient was placed in the left lateral decubitus position. An upper endoscopy was performed next, the oropharynx and esophagus appeared within the normal limits. There was a moderate 3-4cm fixed hiatal hernia. The z-line was irregular with tongus of gastric mucosa protruding in 50-75% of esophageal ci rcumference. Two biopsies were obtained from the distal esohagus 2-3 cm proximal to the GE junction and two additional biopsies from the GE junction. The sleeve was entered and it appeared to be of normal size. there was a small amount of bile reflux. There was no gastritis. There was no stricture or ulcer. Biopsies were obtained from the proximal sleeve as well as the distal antrum. No significant bleeding was noted from any of the biopsy sites. The scope was then advanced into the duodenum which appeared to be normal as well. At that point the duodenum ?and the sleeve were decompressed and the scope was withdrawn from the patient's mouth. The patient extubated and was transferred in stable condition to the Recovery Room for further care. I was present and performed all steps of the procedure. There were no residents to assist with this case. Yariel De La Cruz M.D., Ph.D. Surgeon: David De La Cruz MD Anesthesia: MAC Was an Regional Operations Director used for this Procedure?: No Estimated blood loss (mL): 0 IV fluids (mL): 400 Urine output (mL): 0 (No Swanson to record output) Pathology: other (1) antrum x1, 2) proximal sleeve/gastric fundus x1, 3) EGJ x2, 4) distal esophagus x2) Condition: stable Disposition: PACU
[2023-05-20] MEDS: Lactated Ringers 1,000 ML 80 ML IVCONT (11:57)
[2023-05-20 12:54] VITALS: BP 119/71; PULSE 74; RESP 16; TEMP 36.6; O2SAT 98
[2023-05-20 13:08] VITALS: BP 120/72; PULSE 66; RESP 16; O2SAT 98
[2023-05-20 13:23] VITALS: BP 120/68; PULSE 67; RESP 16; TEMP 36.8; O2SAT 99
== END 2023-05-20 13:45 | disposition home or self-care (01) ==
PROVIDERS: Nurse Practitioner; PCP Internal Medicine; Visit Provider Surgery
PROC: 0DJ08ZZ Inspection of Upper Intestinal Tract, Via Natural or Artificial Opening Endoscopic (ICD-10-PCS; CPT 43235; principal; 2023-05-20 12:30)
DX: K21.9 Gastro-esophageal reflux disease without esophagitis (principal); Z98.84 Bariatric surgery status; E66.01 Morbid (severe) obesity due to excess calories; Z68.42 Body mass index [BMI] 45.0-49.9, adult; K91.2 Postsurgical malabsorption, not elsewhere classified; Z90.3 Acquired absence of stomach [part of]; K44.9 Diaphragmatic hernia without obstruction or gangrene; K20.80 Other esophagitis without bleeding; Z79.899 Other long term (current) drug therapy; Z88.2 Allergy status to sulfonamides
CPT/HCPCS: 43239; 81025; 88305; 88313; 88342; J1596; J2250; J2704

== ENCOUNTER → 2023-05-20 10:20 | Outpatient (BNV) | payer OTHER, SELFPAY | PROVIDERS: PCP Internal Medicine; Visit Provider Surgery | DX: K21.00 Gastro-esophageal reflux disease with esophagitis, without bleeding (principal); Z90.3 Acquired absence of stomach [part of]; Z98.84 Bariatric surgery status | CPT/HCPCS: 43239 ==

== ENCOUNTER → 2023-05-21 10:36 | Outpatient (BNVA) | payer OTHER, SELFPAY | PROVIDERS: PCP Internal Medicine; Visit Provider Physician Assistant Surgical ==

== ENCOUNTER 2023-06-15 08:09 | Outpatient (AMB) | payer OTHER, SELFPAY ==
--- NOTE | 2023-06-15 21:39 | A.OFFVIS_ITS ---
Intake VS Expanded 06/15/23 21:40 Height 5 ft 5 in Weight 277 lb 6 oz BMI 46.2 Body Fat % 61.7 Body Fat Mass 171.2 Fat Free Mass 106.4 Visceral Fat Rating 27 Body Water % 26.2 Body Water Mass 72.7 Basal Metabolic Rate/Score 1,413 Intake Visit Reasons: TV Consult Hernia/Transfer Rebeka Allergies Sulfa (Sulfonamide Antibiotics) [SULFA (SULFONAMIDE ANTIBIOTICS)] Allergy (Intermediate, Verified 06/15/23 21:42) HIVES sulfa drugs Allergy (Mild, Uncoded 03/05/23 13:18) Rash Medication List - Last Reconciled 06/15/23 by David De La Cruz MD cetirizine (Zyrtec) 10 mg PO DAILY PRN pantoprazole 40 mg PO BID sertraline 25 mg PO DAILY sucralfate 10 mL PO Q6H HPI TV Consult Hernia/Transfer Happy HPI Details Start time: 6pm, End time: 7pm ?I spent 50 minutes speaking with the patient on the phone plus an additional 10 minutes reviewing and updating records for a total of 60 minutes HPI Comments History of Present Illness Details Patient was referred to me for severe GERD following a sleeve gastrectomy and anterior (only) hiatal hernia repair by Dr. Valdivia in 2019. Pre sleeve GERD score was 7 and at present is 32 The patient has also gained significant weight, approximately 97lbs since 2020. Recent UGI was reviewed and shows significant GERD to the thoracic inlet and a recurrent moderate-size hiatal hernia This was also confirmed by the EGD performed and also revealed active esophagitis. This has been already addressed by replacing the Omeprazole 20mg with Pantoprazole 40mg and Sucralfate. Wakes up: 6am and sleeps: 11pm Is using [employer] powdered shakes and Think Thin bars [facility] Medical History (Updated 06/15/23 @ 21:48 by David De La Cruz MD) Sleep apnea Hx of pilonidal cyst Intestinal malabsorption following gastrectomy Obesity (BMI 30-39.9) Hx of pilonidal cyst Surgical History (Updated 05/20/23 @ 12:12 by Maribel Garcia RN) History of sleeve gastrectomy History of open reduction and internal fixation (ORIF) procedure Hx of carpal tunnel repair Family History Father No problems noted. Mother No problems noted. Son No problems noted. Daughter No problems noted. Mother No problems noted. Father No problems noted. Son No problems noted. Daughter No problems noted. Social History Alcohol intake: current Alcohol intake frequency: a few times a week Alcohol type: wine Patient Tobacco Use Status: Never used Tobacco Assessment & Plan Assessment & Plan (1) Morbid obesity: Code(s): E66.01 - Morbid (severe) obesity due to excess calories Plan: 1.?Nutritional counseling. Start with 2 [employer] powdered protein shakes (HALF scoop EACH in 8oz low fat unsweetened almond milk each) at 7am-9am and 10am- 12pm, 2 Think Thin protein bars at 1pm-3pm and 4pm-6pm, dinner at 7pm (6 forks of protein and 6 forks of salad/vegetables) and one more protein bar after dinner at 9pm-11pm. So you do 2 protein shakes, 3 protein bars and one meal per day. Meal to include lean meat (beef, fish, pork, turkey, chicken), or croatian yogurt, or egg whites, or beans with a salad with olive oil and fruits (berries, pears, apples, kiwi). Avoid salt, breads, potatoes, rice, pasta, desserts. 3. Each shake would be drunk slowly, like coffee in a period of 2 hours. 4. Cut each bar in 4 pieces and eat each piece in 30min ?to make each bar last 2 hours. 5. I emphasized the importance of measuring accurately the food portion and measure it when serving the food in plate 6. The meal portions include 6 full-size forks of meat and 6 full-size forks of salad. You always eat the meat portion but you can replace up to 3 forks for salad/vegetables with rice, potatoes or pasta, or a fruit ?if you like. The less you do it the better weight loss will be. You can also replace the 6 forks of protein with 6oz of [place]ian yogurt. 7. One full-size fork is what it can be scooped on the fork without falling aside and not what can be bit with the fork. Use regular forks like those you find in a typical restaurant. 8.? Please send me weight measurements weekly on Sundays 9. Start treadmill with an incline of 2.0 and speed of 3.0. Increase incline by 1 every 3 min to a max incline of 8.0, stay 3min at 8.0 and then return to 2.0 and repeat same steps until calorie goal is met. Goal is to burn 2000 calories per week on exercise, which means either 300 calories daily, or 400 calories 5 days per week, or 500 calories 4 days per week, or 650 calories 3 days per week. 10. Goal is to lose at least 1.5-2lbs per week 11. Continue Pantoprazole and Sucralfate daily 12. The patient will require a recurrent diaphragmatic hernia repair and the patient is in agreement with this plan (2) GERD (gastroesophageal reflux disease): Code(s): K21.9 - Gastro-esophageal reflux disease without esophagitis Qualifiers: Esophagitis presence: with esophagitis Esophagitis bleeding: without hemorrhage Qualified Code(s): K21.00 - Gastro-esophageal reflux disease with esophagitis, without bleeding Plan: 1. Continue Pantoprazole and Sucralfate daily 2. The patient will require a recurrent diaphragmatic hernia repair and the patient is in agreement with this plan Telehealth Telehealth Location of provider rendering services: practice address Location of patient: address on file Patient Identification confirmed using: Name, : Yes Telehealth method: voice only Patient verbally consented to treatment: Yes Patient verbally consented to billing insurance company: Yes Patient informed of any privacy concerns related to visit: Yes Minutes spent on Phone/Video with Pt.: 60 Coding Level of Care Code Tele Est Pt Level 5 (401[address]) Diagnoses Morbid obesity E66.01 Gastroesophageal reflux disease with esophagitis without hemorrhage K21.00 Esophagitis presence: with esophagitis Esophagitis bleeding: without hemorrhage Time Spent (min) 60
[2023-06-15 21:40] VITALS: BMI 46.2
== END 2023-06-15 21:59 | disposition home or self-care (01) ==
LOC: HO.HBS 08:09
PROVIDERS: PCP Internal Medicine; Visit Provider Surgery
DX: E66.01 Morbid (severe) obesity due to excess calories (principal); Z68.42 Body mass index [BMI] 45.0-49.9, adult; K21.00 Gastro-esophageal reflux disease with esophagitis, without bleeding
CPT/HCPCS: G2252

== ENCOUNTER → 2023-06-15 08:09 | Outpatient (BNVA) | payer OTHER, SELFPAY | PROVIDERS: PCP Internal Medicine; Visit Provider Surgery ==

== ENCOUNTER 2023-07-24 07:59 | Outpatient (AMB) | payer OTHER, SELFPAY ==
--- OUTSIDE RECORDS SUMMARY | 2023-07-24 08:01 | XMS_ITS | Continuity of Care Document ---
Author Organization [facility] Address [address] [place] [address]- Care Team Providers Care River Driver Name Role Phone Sal Young MD Primary Care Physician [phone] Encounter 05/29/23 - 06/05/23 [facility] [address], [address] [place], [place] [address] Attending Physician: Bandar Jauregui MD Admitting Physician: Bandar Jauregui MD Referring Physician: Bandar Jauregui MD Allergies, Adverse Reactions, Alerts Substance Reaction Severity Status sulfa drugs Active Immunizations Given and Recorded Vaccine Date Status Refusal Reason tetanus/diphtheria/pertussis, acel(Tdap) 04/19/12 Given Medications Multivitamin Tablet 0 Refills, Maintenance Start Date: 04/18/12 Status: Ordered Problem List Condition Confirmation Course Effective Dates Status Health [facility] atus Informant Confirmed Active Results Radiology Reports * Exam Date Time Procedure Performing Provider Status 05/29/23 2:42 PM MM Digital Mammo Screening Royce Cancino; Auth (Verified) Notes: (MM Digital Mammo Screening) Reason For Exam: Z12.31 SCREENING RESULT: MM Digital Mammo Screening PROCEDURE: MM Digital Mammo Screening INDICATION: Screening for breast cancer. No known palpable abnormalities. COMPARISON: None, first mammogram TECHNIQUE: Full-field digital CC and MLO 3D tomosynthesis images of both breasts were acquired. Computer-aided detection (CAD) was utilized in the interpretation of this study. DENSITY: The breast tissue contains scattered areas of fibroglandular density. FINDINGS: No suspicious masses, suspicious microcalcifications, or areas of architectural distortion are seen in either breast to suggest malignancy. IMPRESSION: No mammographic evidence of malignancy. RECOMMENDATION: Annual mammographic screening BI-RADS: 1 (Negative) Lay letter mailed to patient WSN: [id number] Ordering Physician: Bandar Jauregui MD Dictated By: Marzena Mitchell MD Dictated Date/Time: 05/29/23 5:16 pm Reviewed By: Marzena Mitchell MD Signed By: Marzena Mitchell MD Signed Date/Time: 05/29/23 5:16 pm Transcribed By: GRISELDA Die Maker Apprentice Date/Time: 05/29/23 5:12 pm Birads: Patient Care team information Care Team Personnel Name: Sal Young MD Position: Reference Physician Member Role: PCP Address: Address: [address] [place] [address] [place] [address]- Care Team Related Persons Name: LADY ISAACS Address: [address] [place] [address] Name: ZHENG LANTIGUA Address: [address] [place] [address]
[2023-07-24 10:58] VITALS: BMI 44.7
--- NOTE | 2023-07-24 10:58 | MHC.OFFVISWM ---
VS Expanded 07/24/23 10:58 Height 5 ft 5 in Weight 268 lb 8 oz BMI 44.7 Body Fat % 59.4 Body Fat Mass 159.6 Fat Free Mass 109.2 Visceral Fat Rating 26 Body Water % 27.8 Body Water Mass 74.7 Basal Metabolic Rate/Score 1,421 Intake Visit Reasons: TV Follow Up - Hiatal Hernia Allergies Sulfa (Sulfonamide Antibiotics) [SULFA (SULFONAMIDE ANTIBIOTICS)] Allergy (Intermediate, Verified 06/15/23 21:42) HIVES sulfa drugs Allergy (Mild, Uncoded 03/05/23 13:18) Rash HPI HPI TV Follow Up - Hiatal Hernia: Details: Start time: 10.43am, End time: 11.03am ?I spent 15 minutes speaking with the patient on the phone plus an additional 5 minutes reviewing and updating records for a total of 20 minutes HPI Comments Details: Overall weight loss: 8.8 lbs, or 3.2% TBWL GERD has improved Off the Sucralfate Continues the Pantoprazole PFS Medical History (Updated 06/15/23 @ 21:48 by David De La Cruz MD) Sleep apnea Hx of pilonidal cyst Intestinal malabsorption following gastrectomy Obesity (BMI 30-39.9) Hx of pilonidal cyst Surgical History (Updated 05/20/23 @ 12:12 by Maribel Garcia RN) History of sleeve gastrectomy History of open reduction and internal fixation (ORIF) procedure Hx of carpal tunnel repair Family History Father No problems noted. Mother No problems noted. Son No problems noted. Daughter No problems noted. Mother No problems noted. Father No problems noted. Son No problems noted. Daughter No problems noted. Social History Alcohol intake: current Alcohol intake frequency: a few times a week Alcohol type: wine Patient Tobacco Use Status: Never used Tobacco Telehealth Telehealth Location of provider rendering services: practice address Location of patient: address on file Patient Identification confirmed using: Name, : Yes Telehealth method: voice only Patient verbally consented to treatment: Yes Patient verbally consented to billing insurance company: Yes Patient informed of any privacy concerns related to visit: Yes Minutes spent on Phone/Video with Pt.: 20 Assessment & Plan Assessment & Plan (1) GERD (gastroesophageal reflux disease): Code(s): K21.9 - Gastro-esophageal reflux disease without esophagitis Category: Medical Qualifiers: Esophagitis presence: with esophagitis Esophagitis bleeding: without hemorrhage Qualified Code(s): K21.00 - Gastro-esophageal reflux disease with esophagitis, without bleeding Plan: 1. The patient feels better. She does not wish to proceed with surgery to revise the sleeve and repair the diaphragmatic hernia. She wishes to continue with the present diet plan and follow up in our office. I am in agreement with that plan.
== END 2023-07-24 11:04 | disposition home or self-care (01) ==
LOC: HO.HBS 07:59
PROVIDERS: PCP Internal Medicine; Visit Provider Surgery
DX: K21.00 Gastro-esophageal reflux disease with esophagitis, without bleeding (principal)
CPT/HCPCS: 99213

== ENCOUNTER → 2023-07-24 07:59 | Outpatient (BNVA) | payer OTHER, SELFPAY | PROVIDERS: PCP Internal Medicine; Visit Provider Surgery ==

== ENCOUNTER 2024-02-22 10:47 | Outpatient (REF) | payer OTHER, SELFPAY ==
[2024-02-22 10:52] LABS: MANUAL DIFF FLAG NO
[2024-02-22 11:31] LABS: Appearance Urine Clear; Color Urine Dark Yellow; Glucose Urine UA Negative (Negative); Leukocyte Esterase Urine Trace (Negative); Nitrite Urine Negative (Negative); PH 6.5 (5.0-9.0); Specific Gravity - Urine >= 1.030 (1.005-1.025); UMIC TRIGGER UACC YES; Urine Blood Negative (Negative); Urine Ketones Trace mg/dL (Negative); Urine Protein Trace mg/dL (Neg-Trace)
[2024-02-22 11:34] LABS: Basophils Percent Auto 0.5 % (0-2); Eosinophils Absolute Auto 0.2 X10*3/uL (0.0-0.4); Eosinophils Percent Auto 2.8 % (0-4); Hematocrit 33.7 % (37.0-47.0); Hemoglobin 10.4 g/dl (12.0-16.0); Imm Gran Abs Auto 0.01 X10*3/uL (0.00-0.03); Imm Gran Pct Auto 0.2 % (0.0-0.4); Lymphocytes Absolute Auto 2.7 X10*3/uL (1.2-4.9); Lymphocytes Percent Auto 42.1 % (20-40); Mean Corpuscular HGB Conc 30.9 g/dl (31.0-35.0); Mean Corpuscular Hemoglobin 24.4 pg (27.0-33.0); Mean Corpuscular Volume 78.9 fL (80.0-98.0); Mean Platelet Volume 10.8 fL (9.4-12.3); Monocytes Absolute Auto 0.4 X10*3/uL (0.1-1.2); Monocytes Percent Auto 6.1 % (2-11); Neutrophils Absolute Auto 3.1 x10*3/uL (2.0-8.3); Neutrophils Percent Auto 48.3 % (45-73); Platelet Count 232 X10*3/uL (160-400); Red Blood Count 4.27 X10*6/uL (4.20-5.50); Red Cell Distribution Width 16.1 % (11.0-16.0); White Blood Count 6.4 X10*3/uL (4.8-10.8)
[2024-02-22 11:36] LABS: Bacteria Urine 1+ (None Seen); RBC Urine 0-2 /HPF (0-2); WBC Urine 0-5 /HPF (0-5)
[2024-02-22 11:43] LABS: Alanine Aminotransferase 8 U/L (0-31); Albumin Level 3.8 g/dL (3.5-5.0); Alkaline Phosphatase 102 U/L (39-117); Anion Gap 11 (12-20); Aspartate Amino Transferase 14 U/L (5-31); Bilirubin Total 0.3 mg/dL (0.0-1.0); Blood Urea Nitrogen 10 mg/dL (9-16); Carbon Dioxide 30 mmol/L (22-29); Chloride 100 mmol/L (96-108); Cholesterol 205 mg/dL (<200); Estimated Glomerular Filt Rate > 60; Glucose Fasting 93 mg/dL (60-99); HDL Cholesterol 75 mg/dL (>40); LDL Cholesterol Calculated 107 mg/dL (<100); Potassium 3.3 mmol/L (3.3-5.1); Sodium 138 mmol/L (135-145); Total Protein 7.1 g/dL (6.5-8.0); Triglycerides 118 mg/dL (<150)
== END 2024-02-22 10:48 | disposition home or self-care (01) ==
LOC: HO.LNP 10:47
PROVIDERS: Visit Provider Internal Medicine
DX: Z00.00 Encounter for general adult medical examination without abnormal findings (principal); D69.6 Thrombocytopenia, unspecified
CPT/HCPCS: 80053; 80061; 81001; 85025

== ENCOUNTER 2024-03-08 11:42 | Outpatient (REF) | payer OTHER, SELFPAY ==
[2024-03-08 12:53] LABS: Iron 45 mcg/dL (30-160); Percent Iron Saturation 11 % (15-50); Total Iron Binding Capacity 417 mcg/dL (228-428); Unsaturated Iron Binding 372 ug/dL
--- OUTSIDE RECORDS SUMMARY | 2024-03-15 13:32 | XMS_ITS ---
Author Organization Sal Young MD Address [address] [place], [place] [id number] Care Team Providers Care Cut Out Operator Name Role Phone Hector Sal Primary Care Provider ALLERGIES Allergen (clinical drug ingredient) Drug/Non Drug Allergy documented on EMR Reaction Allergy Type Onset Date Status sulfamethoxazole / trimethoprim Bactrim DS rash Drug Allergy Active REASON FOR VISIT annual visit MEDICATIONS Medication SIG (Take, Route, Frequency, Duration) Notes Start Date End Date Status rOPINIRole HCl 0.5 MG 1 tablet 1 to 3 ho urs before bedtime Orally Once a day for 30 days 02/29/2024 Active Ventolin HFA 108 (90 Base) MCG/ACT 2 puffs as needed Inhalation every 6 hrs for 30 days 01/25/2018 Not-Taking Meclizine HCl 25 MG 1 tablet as needed Orally Once a day Not-Taking Triamterene-HCTZ 37.5-25 MG TAKE ONE CAPSULE BY MOUTH EVERY MORNING for 30 Active Sertraline HCl 50 MG TAKE ONE TABLET BY MOUTH EVERY DAY for 90 Active Omeprazole 40 MG 1 capsule 30 minutes before morning meal Orally Once a day 03/16/2023 Active ZyrTEC Allergy 10 MG 1 tablet Orally Onc e a day Active Sprintec 28 0.25-35 MG-MCG TAKE 1 TABLET BY MOUTH EVERY DAY Oral for 28 Active SOCIAL HISTORY Tobacco Use: Social History Observation [...] W/U Status Risk SNOMED Code Notes Problem Restless leg (G25.81) Active confirmed 35177480 VITAL SIGNS BMI 45.31 kg/m2 02/29/2024 Blood pressure systolic 120 mm Hg 02/29/20 24 Blood pressure diastolic 90 mm Hg 024 Height 66.50 in 02/29/2024 Weight 285 lbs 02/29/2024 Encounters Encounter Location Date Provider Diagnosis Sal Young MD [address] [place], [place] [phone] 02/29/2024 Sal Young Mild anemia D64.9 ; Annual physical exam Z00.00 ; Gastroesophageal reflux disease without esophagitis K21.9 ; CLARA (obstructive sleep apnea) G47.33 ; Restless leg G25.81 and Depression screening Z13.31 ASSESSMENTS Encounter Date Diagnosis Assessment Notes Treatment Notes Treatment Clinical Notes 02/29/2024 Mild anemia (ICD-10 - D64.9) having heavy periods every other month, will cntnue to monitor 02/29/2024 Annual physical exam (ICD-10 - Z00.00) labs reviewed and discussed with patient 02/29/2024 Gastroesophageal reflux disease without esophagitis (ICD-10 - K21.9) doing well on pantoprazole, will contnue current regiment 02/29/2024 CLARA (obstructive sle ep apnea) (ICD-10 - G47.33) using cpapnightly 02/29/2024 Restless leg (ICD-10 - G25.81) will try requip 02/29/2024 Depression screening (ICD-10 - Z13.31) negative screen PLAN OF TREATMENT Medication Medication Name Sig Start Date Stop Date Notes rOPINIRole HCl 0.5 MG 1 tablet 1 to 3 ho urs before bedtime Orally Once a day for 30 days 02/29/2024 Omeprazole 40 MG 1 capsule 30 minutes before morning meal Orally Once a day 03/16/2023 Treatment Notes Assessment Notes Mild anemia having heavy periods every other month, will cntnue to monitor Annual physical exam labs reviewed and d iscussed with patient Gastroesophageal reflux dise ase without esophagitis doing well on pantoprazole, will contnue current regiment CLARA (obstructive sleep apnea) using cpap nightly Restless leg will try requip Depression screening negative screen Future Test Test Name Order Date IRON PROFILE 03/07/2024 Next Appt Details Follow Up: 6 Weeks, Reason: Provider Name:Sal cantu, 04/07/2024 09:00:00 AM, [address] [place] [address], [address], [phone], Provider Name:Sal cantu, 02/27/2025 08:00:00 AM, [address] [place] [address], [address], [phone], Provider Name:Sal cantu, 03/06/2025 10:30:00 AM, [address] [place] [address], [address], [phone], Progress Notes * Examination Category Sub-Category Detail Notes General Examination GENERAL APPEARANCE: well dev eloped, well nourished, in no acute distress HEAD: normocephalic, atrau matic EYES: pupils equal, round, reactive to light and accommodation, sclera non- icteric EARS: normal THROAT: clear NECK/THYROID: neck supple, full ra nge of motion, no cervical lymphadenopathy, no bruits HEART: regular rate and rhy thm, S1, S2 normal, no murmurs LUNGS: clear to auscultatio n bilaterally ABDOMEN: soft, nontender, non distended, bowel sounds present, normal, no organomegaly , no masses palpable NEUROLOGIC: nonfocal, motor stre ngth normal upper and lower extremities, sensory exam intact SKIN: warm and dry, no pam picious lesions EXTREMITIES: no clubbing, cyanosi s, or edema BREASTS: done by endless steamer tender RECTAL EXAM: done by endless steamer tender FEMALE GENITOURINARY: done by endless steamer tender ORAL CAVITY: mucosa moist History and Physical Notes * HPI (History of Present Illness) Category Sub-Category Detail Notes Depression Screening PHQ-9 Little inte rest or pleasure in doing things: Not at all Feeling down, depressed, or hopeless: No t at all Trouble falling or staying asleep, or sl eeping too much: Not at all Feeling tired or having little energy: N ot at all Poor appetite or overeating: Not at all Feeling bad about yourself o r that you are a failure, or have let yourself or your family down: Not at all Trouble concentrating on thi ngs, such as reading the newspaper or watching television: Not at all Interpretation and Intervention Depression Melani arndt Findings: Negative Follow-Up for Depression: : review of PH Q-9 found negative result, no follow-up needed SDOH Questions SDOH Questions In the past year have you been worried about losing housing?: No In the past year have you or any family members you live with been unable to get any of the following when it was really needed? Check all that apply:: None Communication Needs Communication Needs Does the patient have a hearing impairment: No Does the patient have a vision impairmen t?: Yes ?If yes, what is the vision impairment?: Glasses Does the patient have a cognition impair ment?: No
--- OUTSIDE RECORDS SUMMARY | 2024-03-15 13:32 | XMS_ITS ---
Author Organization Sal Young MD Address [address] [place] [phone] Care Team Providers Care Courtroom Deputy Or Calendar Clerk Name Role Phone Sal Young Primary Care Provider RESULTS Component Value Reference Range Notes IRON PROFILE Reviewed date:03/08/2024 12:58:34 PM Interpretation: Performing Lab:[facility], [address] [place] [phone] Notes/Report: Iron 45 30-160 mcg/dL Slight Hemolys is.Interpret result with caution. Total Iron Binding Capacity 417 228-428 mcg/d L Percent Iron Saturation 11 15-50 % Unsaturated Iron Binding 372 REASON FOR VISIT IRON PROFILE Encounters Encounter Location Date Provider Diagnosis Sal Young MD [address] [place] [phone] 03/08/2024 Sal Young Anemia D64.9 ASSESSMENTS Encounter Date Diagnosis Assessment Notes Treatment Notes Treatment Clinical Notes 03/08/2024 Anemia (ICD-10 - D64.9) PLAN OF TREATMENT Next Appt Details Provider Name:Sal cantu, 04/07/2024 09:00:00 AM, [address] [facility], [address], [place], [phone], Provider Name:Sal cantu, 02/27/2025 08:00:00 AM, [address] [place] [address], [address], [place], [phone], Provider Name:Sal cantu, 03/06/2025 10:30:00 AM, [address] [place] [address], [address], [place], [phone],
--- OUTSIDE RECORDS SUMMARY | 2024-03-15 13:32 | XMS_ITS | Patient Health Record ---
Author Organization Sal Young MD Address [address] [place], [place] [phone] Care Team Providers Care Supply Cataloguer Name Role Phone Hector Sal Primary Care Provider ALLERGIES Allergen (clinical drug ingredient) Drug/Non Drug Allergy documented on EMR Reaction Allergy Type Onset Date Status sulfamethoxazole / trimethoprim Bactrim DS rash Drug Allergy Active RESULTS Component Value Reference Range Notes Ur Preg Test Reviewed date:05/20/2023 07:03:29 PM Interpretation: Performing Lab:[facility], [address] [place] [phone] Notes/Report: Urine NEGATIVE NEGATIVE This test was developed to detect early . False negative results may occur after the 5th - 7th week of when using this test method. If clinically indicated, consider a serum hCG. Pathology Reviewed date:05/21/2023 04:42:26 PM Interpretation: Performing Lab:[facility], [address] [place] [phone] Notes/Report: Complete Blood Count Auto Di ff Reviewed date:02/22/2024 12:45:51 PM Interpretation: Performing Lab:[facility], [address] [place] [phone] Notes/Report: White Blood Count 6.4 4.8-10.8 X10*3/uL Red Blood Count 4.27 4.20-5.50 X10*6/uL Hemoglobin 10.4 12.0-16.0 g/dl Hematocrit 33.7 37.0-47.0 % Mean Corpuscular Volume 78.9 80.0-98.0 fL Mean Corpuscular Hemoglobin 24.4 27.0-33.0 pg Mean Corpuscular HGB Conc 30.9 31.0-35.0 g/dl Red Cell Distribution Width 16.1 11.0-16.0 % Platelet Count 232 160-400 X10*3/uL Mean Platelet Volume 10.8 9.4-12.3 fL Neutrophils Percent Auto 48.3 45-73 % Imm Gran Pct Auto 0.2 0.0-0.4 % Lymphocytes Percent Auto 42.1 20-40 % Monocytes Percent Auto 6.1 2-11 % Eosinophils Percent Auto 2.8 0-4 % Basophils Percent Auto 0.5 0-2 % NRBC Pct Auto 0.0 0.0-0.2 /100WBC Neutrophils Absolute Auto 3.1 2.0-8.3 x10*3/u L Imm Gran Abs Auto 0.01 0.00-0.03 X10*3/uL Lymphocytes Absolute Auto 2.7 1.2-4.9 X10*3/u L Monocytes Absolute Auto 0.4 0.1-1.2 X10*3/uL Eosinophils Absolute Auto 0.2 0.0-0.4 X10*3/u L Basophils Absolute Auto 0.0 0.0-0.2 X10*3/uL NRBC Abs Auto 0.000 0.0-0.012 X10*3/uL Comprehensive [place]. Panel Fa st Reviewed date:02/22/2024 12:47:01 PM Interpretation: Performing Lab:[facility], [address] [place] [phone] Notes/Report: Sodium 138 135-145 mmol/L Potassium 3.3 3.3-5.1 mmol/L Chloride 100 96-108 mmol/L Carbon Dioxide 30 22-29 mmol/L Anion Gap 11 12-20 Blood Urea Nitrogen 10 9-16 mg/dL Creatinine 0.72 0.5-1.4 mg/dL Estimated Glomerular Filt Rate > 60 Chronic Kidney Disease: Estimated GFR < 60 mL/min/1.73m2 Severe Kidney Disease: Estimated GFR < 15 mL/min/1.73m2 Glucose Fasting 93 60-99 mg/dL Calcium 9.0 8.4-10.2 mg/dL Bilirubin Total 0.3 0.0-1.0 mg/dL Aspartate Amino Transferase 14 5-31 U/L Alanine Aminotransferase 8 0-31 U/L Total Protein 7.1 6.5-8.0 g/dL Albumin Level 3.8 3.5-5.0 g/dL Alkaline Phosphatase 102 39-117 U/L Lipid Panel Reviewed date:02/22/2024 12:39:16 PM Interpretation: Performing Lab:[address] [phone] Notes/Report: Triglycerides 118 <150 mg/dL Desirable Triglyceride: less than 150 mg/dL Borderline High Triglyceride 150-199 mg/dL High Triglyceride: 200-499 mg/dL Very High Triglyceride: greater than or equal to 5OO mg/dL Cholesterol 205 <200 mg/dL Desirable Cholesterol: less than 200 mg/dL Borderline High Cholesterol: 200-239 mg/dL High Cholesterol: greater than 239 mg/dL LDL Cholesterol Calculated 107 <100 mg/dL Desirable LDL: less than 100 mg/dL Near Optimal/Above Optimal LDL: 110-129 mg/dL Borderline High LDL: 130-159 mg/dL High LDL: 160-189 mg/dL Very High LDL: greater than or equal to 190 mg/dL HDL Cholesterol 75 >40 mg/dL Desirable HDL: greater than 40 mg/dL Note: This HDL assay may give artificially low results in patients with liver disease. UA ClnCatch+Micro w/rflx Cul t Reviewed date:02/22/2024 12:46:43 PM Interpretation: Performing Lab:[address] [phone] Notes/Report: [id number] Urine, Clean Catch Color Urine Dark Yellow Appearance Urine Clear PH 6.5 5.0-9.0 Glucose Urine UA Negative Negative mg/dL Urine Blood Negative Negative Specific [place] - Urine >= 1.030 1.005-1.025 Urine Protein Trace Neg-Trace mg/dL Urine Ketones Trace Negative mg/dL Nitrite Urine Negative Negative Leukocyte Esterase Urine Trace Negative RBC Urine 0-2 0-2 /HPF WBC Urine 0-5 0-5 /HPF Squamous Epithelial Cell Urine 6-10 0-2 /HPF Bacteria Urine 1+ None Seen Hyaline Casts Urine 3-5 0-2 /LPF IRON PROFILE Reviewed date:03/08/2024 12:58:34 PM Interpretation: Performing Lab:[facility], [address] [place] [phone] Notes/Report: Iron 45 30-160 mcg/dL Slight Hemolysis.Interpret result with caution. Total Iron Binding Capacity 417 228-428 mcg/d L Percent Iron Saturation 11 15-50 % Unsaturated Iron Binding 372 REASON FOR REFERRAL No Information MEDICATIONS Medication SIG (Take, Route, Frequency, Duration) Notes Start Date End Date Status Omeprazole 40 MG 1 capsule 30 minutes before morning meal Orally Once a day 03/16/2023 Active rOPINIRole HCl 0.5 MG 1 tablet 1 [...] BY MOUTH EVERY DAY for 90 Active ZyrTEC Allergy 10 MG 1 tablet Orally Onc e a day Active Sprintec 28 0.25-35 MG-MCG TAKE 1 TABLET BY MOUTH EVERY DAY Oral for 28 Active IMMUNIZATIONS Vaccine Route Administration Date Status Comme nts Flu Vaccine Unknown 06/09/2011 Administered TDaP Unknown 03/10/2012 Administered Flu Vaccine IM Intramuscular 03/08/2015 Administered pt re cieved the vaccine at the [facility] in [place]. Fluarix Quadrivalent IM Intramuscular 12/19/2016 Administe red [...] Fluarix Quadrivalent IM Intramuscular 02/12/2023 Administe red Fluarix Quadrivalent - 150 IM Intramuscular 02/22/2024 Administered Flu Vaccine Unknown 06/26/2014 Refused Tetanus Unknown [...] Code Notes Problem Thrombocytopenia (D69.6) Active confirmed 823650407 Problem Anxiety (F41.9) Active confirmed 827538 02 Problem Other neutropenia (D70.8) Active confirmed 644315233 Problem Gastroesophageal reflux disease without esophagitis (K21.9) Active confirmed 971409690 Problem Esophageal dysmotility (K22.4) Active confirmed 791198464 Problem Restless leg (G25.81) Active confirmed 91103770 Problem Carpal tunnel syndrome of left wrist (G56.02) Active confirmed 92019960 Problem CLARA (obstructive sleep apnea) (G47.33) Active confirmed 05276567 Problem BMI 40.0-44.9, adult (Z68.41) Active confirmed 059008406 Problem Temporary low platelet count (D69.6) Active confirmed 724118041 Problem Mild intermittent asthmatic bronchitis with acute exacerbation (J45.21) Active confirmed 582076133 Problem 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 21676933 VITAL SIGNS Blood pressure diastolic 90 mm Hg 02/29/2024 Height 66.50 in 02/29/2024 Blood pressure systolic 120 mm Hg 02/29/2024 Weight 285 lbs 02/29/2024 BMI 45.31 kg/m2 02/29/2024 Encounters Encounter Location Date Provider Diagnosis Sal Young MD [address] [place] [id number] 02/29/2024 Sal Young Mild anemia D64.9 ; Annual physical exam Z00.00 ; Gastroesophageal reflux disease without esophagitis K21.9 ; CLARA (obstructive sleep apnea) G47.33 ; Restless leg G25.81 and Depression screening Z13.31 Sal Young MD [address] [place] [id number] 03/16/2023 Sal Young Esophageal dysmotili ty K22.4 ; Lesion of esophagus K22.9 and Gastroesophageal reflux disease without esophagitis K21.9 Sal Young MD [address] [place] [id number] 02/22/2024 Sal Young Blood tests for rout ine general physical examination Z00.00 ; Encounter for immunization Z23 and Thrombocytopenia D69.6 Sal Young MD [address] [place] [id number] 03/08/2024 Sal Young Anemia D64.9 Sal Young MD [address] [place] [id number] 05/29/2023 Sal Young MD [address] [place] [id number] 07/28/2023 Sal Young Menieres disease of right ear H81.[address] [place] [id number] 03/15/2024 Sal Young ASSESSMENTS Encounter Date Diagnosis Assessment Notes Treatment Notes Treatment Clinical Notes 02/29/2024 Annual physical exam (ICD-10 - Z00.00) labs reviewed and discussed with patient 02/29/2024 Mild anemia (ICD-10 - D64.9) having heavy periods every other month, will cntnue to monitor 03/16/2023 Esophageal dysmotili ty (ICD-10 - K22.4) [...] call me and we will arrange it 02/22/2024 Encounter for immunization (ICD-10 - Z23) 02/22/2024 Blood tests for routine general physical examination (ICD-10 - Z00.00) 03/08/2024 Anemia (ICD-10 - D64.9) 07/28/2023 Menieres disease of right ear (ICD-10 - H81.01) 02/29/2024 Gastroesophageal reflux disease without esophagitis (ICD-10 - K21.9) doing well on pantoprazole, will contnue current regiment 03/16/2023 Gastroesophageal reflux disease without esophagitis (ICD-10 - K21.9) will refer back to weight loss clinic/ patient is booking her own appt 02/22/2024 Thrombocytopenia (ICD-10 - D69.6) 02/29/2024 CLARA (obstructive sle ep apnea) (ICD-10 - G47.33) using cpapnightly 02/29/2024 Restless leg (ICD-10 - G25.81) will try requip 02/29/2024 Depression screening (ICD-10 - Z13.31) negative screen PLAN OF TREATMENT Pending Test Test Name Order Date XR GI SERIES 02/19/2023 Future Test Test Name Order Date IRON PROFILE 03/07/2024 Next Appt Details Provider Name:Sal cantu, 04/07/2024 09:00:00 AM, [address] [place] [address], [address], [phone], Provider Name:Sal cantu, 02/27/2025 08:00:00 AM, [address] [place] [address], [place] [address], [place], [place], [phone], Provider Name:Sal cantu, 03/06/2025 10:30:00 AM, [address] [place] [address], [address], [phone], Insurance Providers Payer Name Payer Address Payer Phone Subscriber Number Group Number Insured Name Patient Relationship to Insured Coverage Start Date Coverage End Date [employer] [address] [address] [place] [phone] [id number] [id number] [phone] Felisa Damon Self - patient is the insured MEDICAL (GENERAL) HISTORY Surgical History Surgery Date(Month/Year) ORIF Rt Radial Head - Dr. Dickerson 8
--- OUTSIDE RECORDS SUMMARY | 2024-03-15 13:32 | XMS_ITS | Data Portability ---
Author Organization [place] - [facility], Allergy Address [address] [address] Care Team Providers Care Him Specialists Name Role Phone AALIYAH POLANCO Primary Care Provider Assessment Encounter Date Assessment Date Assessment LastModified by Organization Details LastModified Time 10/01/2023 10/01/2023 40 yo female here for f/u of SLIT and evaluation of her Meniere's disease. Started SLIT 07/2019. Audiogram shows stable hearing. I renewed her dyazide which seems to help her quite a bit with her dizziness. She is not consistent with taking the SL IT. She does have several allergy sensitivities .I counseled her it is can be more effective if she uses it consistently. She could also continue her Zyrtec. [email or web address] Not available 10/01/2023 16:43:54 Plan of Treatment Reminders Order Date Submit Date Provider Last Modified By Organization Details Last Modified Time Details Appointments None recorded. Lab None recorded. Referral None recorded. Procedures None recorded. Surgeries None recorded. Imaging None recorded. Medication Orders triamterene 37.5 mg-hydrochl orothiazide 25 mg tablet 2023 024 [id number], [address] [place], [address], 15:34:23 Patient TargetsNo targets recorded. Patient InstructionsNo instructions recorded. Reason for Referral None Reported. Results Created Date Observation Date Name Description Value Unit Range Abnormal Flag Note LastModifiedBy Organization Detail LastModifiedTime 11/26/19 24 05/18/2019 imagi ng/di agnos tic resul t No observ ation record ed. [email or web address] Not Available 00:09:32 11/26/19 24 09/30/2018 imagi ng/di jose angel tic resul t No observ ation record ed. [email or web address] Not Available 00:11:23 11/26/19 24 10/13/2018 audio gram No observ ation record ed. [email or web address] Not Available 00:11:24 Result Notes None recorded. Problems Name Problem SNOMED Code Status Onset Date Resolution Date Notes Provider Name and Address Organization Details Recorded Time Allergic rhinitis 62755779 Active 2019 Allergic Rhinitis; Note: Date Diagnosed : 07/20/2019 10:18 AM (477.9) Note: Date Diagnosed : 07/20/2019 10:18 AM (477.9) Allergi c rhinitis: Due to other allergen; Note: Date Diagnosed : 05/30/2019 10:03 AM (477.8) Note: Date Diagnosed : 05/30/2019 10:03 AM (477.8) ; Start Date : 0 Not Available [facility] 4 00:55:55 Dizziness and giddiness 285246631 Active 2019 Dizziness and giddiness ; Note: Date Diagnosed : 05/18/2019 12:20 PM (R42) Not Available [facility] 4 02:22:45 M??ni??re 's disease 59954486 Active 2019 Meniere's disease, right ear; Note: Date Diagnosed : 05/18/2019 12:19 PM (H81.01) Not Available [facility] 4 02:22:36 Allergic rhinitis caused by pollen 41847502 Active 2019 Allergic rhinitis due to pollen; Note: Date Diagnosed : 01/04/2020 8:56 AM (J30.1) Allergi c rhinitis due to pollen; Note: Date Diagnosed : 07/07/2019 10:26 AM (J30.1) ; Start Date : 0 Not Available [facility] 4 02:22:30 Sensorine ural hearing loss 84670460 Active 2019 Sensorine ural hearing loss, unilatera l, right ear, with unrestric leonidas hearing on the contralat eral side; Note: Date Diagnosed : 05/18/2019 10:31 AM (H90.41) Not Available [facility] 4 02:22:54 Meniere's disease of right inner ear 00235503056 43228 Active 2023 ELIEZER WALL MD [address] [address], [place], [address] , [facility] 4 15:33:39 Problem Notes None recorded. Procedures Surgical History Date Name Laterality Status Provider Name and Address Organization Details Recorded Time 10/01/2023 Comp Audio with Tymps (41015 & 56884) completed DMITRY FARAH [address] [place] [address], [place], [address], [facility] 10/01/2023 14:31:40 Imaging Results Imaging Date Name Status LastModified by Organiz ation Details LastModified Time 05/18/2019 imaging/diagno stic result completed Information not available 11/26/2023 00:09:32 09/30/2018 imaging/diagno stic result completed Information not available 11/26/2023 00:11:23 10/13/2018 audiogram completed Information not available 11/26/2023 00:11:24 Procedure Notes None recorded. Medical Equipment None Reported. Allergies Allergen ID Allergen Name Allergen Category Reaction Reaction Severity Criticality Documentation Date Start Date Code Code System Note Provider Name and Address Organization Details Recorded Time 10186 Substance with sulfonami de structure and antibacte rial mechanism of action (substanc e) medicatio n other Not available Not available 08/18/2023 13985 5682 SNOMED React ion: unkno wn, unspe cifie d;; Not Available [facility] 4 00:54:33 Medications Name Sig Start Date Stop Date Status Note LastModified by Organization Details LastModified Time Prescript ion - Prior Authoriza tion Request active Script Copy/Kerrie or Auth^Scr ipt Copy/Kerrie or Auth_ 78103 Not Available Not Available Not Available norgestim ate 0.25 mg-ethiny l estradiol 35 mcg tablet active Not Available Not Available Not Available omeprazol e 40 mg capsule,d elayed release active Not Available Not Available Not Available triamtere ne 37.5 mg-hydroc hlorothia zide 25 mg capsule Take 1 capsule by mouth once a day as directed active Not Available Not Available No t Available amoxicill in 875 mg tablet 09/30 completed Not Available Not Available Not Available triamtere ne 37.5 mg-hydroc hlorothia zide 25 mg tablet Take 1 tablet every day by oral route. active Not Available Not Available No t Available fluticaso ne propionat e 50 mcg/actua tion nasal spray,pam pension 2019 active Medicati on ID: [id number] D uration Value: 30 Brand Name: fluticas one propiona te Send Method: E-Prescr ibed Sub s Allowed: subs OK Medic ationGen ericName : fluticas one propiona te Not Available Not Available Not Available sertralin e 50 mg tablet active Not Available Not Available Not Available Pepcid 09/30 completed Medicati on ID: [id number] B rand Name: pepcid S end Method: E-Prescr ibed Sub s Allowed: subs OK Medic ationGen ericName : pepcid Bright fischer n ID: [id number] B rand Name: pepcid S end Method: E-Prescr ibed Sub s Allowed: subs OK Medic ationGen ericName : pepcid Not Available Not Available Not Available meclizine 1 tablet by mouth 2019 active Medicati on ID: [id number] B rand Name: meclizin e Send Method: E-Prescr ibed Sub s Allowed: subs OK Medic ationGen ericName : meclizin e Not Available Not Available Not Available EpiPen 2-Tu 0.3 mg/0.3 mL injection , auto-inje ctor Inject 1 pen injector intramus cularly single dose 2022 active Medicati on ID: [id number] D uration Value: 1 Brand Name: EpiPen 2-Tu Se nd Method: E-Prescr ibed Sub s Allowed: subs OK Medic ationGen ericName : EpiPen 2-Tu Not Available Not Available Not Available Vitals Date Recorded Body height Body mass index (BMI) Body weight Provider Name and Address Organization Details Last Updated DateTime 10/01/2023 165.1 cm 45.8 kg/m2 771134.9 g Isabel Gilmanbryn [place] - [facility] 10/01/2023 14:02:39 Social History None recorded. Functional Status None recorded. Mental Status None recorded. Family History Nothing Reported. Medical History No medical history recorded. Gynecological HistoryNo gynecological history recorded. Obstetrics History GPAL:G 0 P 0 0 0 0 Past Encounters Encounter ID Performer Location Encounter Start Date Encounter Closed Date Diagnosis/Indication Diagnosis SNOMED-CT Code Diagnosis ICD10 Code [id number] ELIEZER WALL MD [facility] [address] [place] [phone] 10/01/2023 14:01:40 10/01/2023 15:42:46 Sensorineural hearing loss 65968783 H90.41 M??ni??re's disease 1344 5001 H81.01 Meniere's disease of right inner ear 1694352466 046014 H81.01 Allergic rhinitis 957915 04 J30.9 Dizziness and giddiness 985566956 R42 Health Concerns Section Related Observation LastModified by Organization Detai ls LastModified Time None Recorded Concern Status LastModified by Organization Details LastModified Time None Recorded Advance Directives Directive None Recorded Payers Encounter Date Sequence Insurance Name Policy Number Policy Stein Covered Member ID Stein Member ID Guarantor Name 10/01/2023 1 [facility] [id number] Felisa Damon [id number] Felisa Nelson Notes Date Note Type Note Provider Name and Address Organization Details Recorded Time 10/01/2023 text/html 43 yo female her e for f/u of SLIT and evaluation of her Meniere's disease. Started SLIT 07/2019. Also tolerating the dyazide well. Thinks it is really effective. ears will sometimes feel full.MRI 2018 no retrocochlear massAllergy testing 2019 multiple sensitivities Takes Zyrtec, occasional Sudafed, no nasal steroids. ELIEZER WALL MD [address] [place] [address], [place], [address], [facility] - [facility] 10/01/2023 16:44:11 OBGyn Episode No OBEpisode recorded.
--- OUTSIDE RECORDS SUMMARY | 2024-03-15 13:32 | XMS_ITS ---
Author Organization Sal Young MD Address [address] [place] [phone] Care Team Providers Care Proof Clerk Name Role Phone MarilialalitoSal Primary Care Provider [phone] REASON FOR VISIT lab results Iron Encounters Encounter Location Date Provider Diagnosis Sal Young MD 10 [facility] [address] [place] [phone] 03/15/2024 Sal Young PLAN OF TREATMENT Next Appt Details Provider Name:Sal cantu, 04/07/2024 09:00:00 AM, [address] [place] [address], [address] [address], [place], [place], [phone], Provider Name:Sal cantu, 02/27/2025 08:00:00 AM, [address] [place] [address], [address] [address], [place], [place], [phone], Provider Name:Sal cantu, 03/06/2025 10:30:00 AM, [address] [place] [address], [address], [phone],
== END 2024-03-08 11:43 | disposition home or self-care (01) ==
LOC: HO.LNP 11:42
PROVIDERS: Visit Provider Internal Medicine
DX: D64.9 Anemia, unspecified (principal)
CPT/HCPCS: 83540

== ENCOUNTER 2024-10-25 10:14 | Outpatient (REF) | payer OTHER, SELFPAY ==
[2024-10-25 10:17] LABS: MANUAL DIFF FLAG NO
[2024-10-25 10:26] LABS: Hematocrit 37.4 % (37.0-47.0); Hemoglobin 11.8 g/dl (12.0-16.0); Imm Gran Abs Auto 0.02 X10*3/uL (0.00-0.03); Imm Gran Pct Auto 0.2 % (0.0-0.4); Lymphocytes Absolute Auto 3.3 X10*3/uL (1.2-4.9); Mean Corpuscular HGB Conc 31.6 g/dl (31.0-35.0); Mean Corpuscular Hemoglobin 26.5 pg (27.0-33.0); Mean Corpuscular Volume 84.0 fL (80.0-98.0); NRBC Abs Auto 0.000 X10*3/uL (0.0-0.012); NRBC Pct Auto 0.0 /100WBC (0.0-0.2); Platelet Count 246 X10*3/uL (160-400); Red Blood Count 4.45 X10*6/uL (4.20-5.50); White Blood Count 8.2 X10*3/uL (4.8-10.8)
[2024-10-25 10:36] LABS: Iron 42 mcg/dL (30-160); Percent Iron Saturation 12 % (15-50); Total Iron Binding Capacity 360 mcg/dL (228-428); Unsaturated Iron Binding 318 ug/dL
--- OUTSIDE RECORDS SUMMARY | 2024-10-25 11:18 | XMS_ITS | Patient Health Record ---
Author Organization Sal Young MD Address [address] [place], [place] [id number] Care Team Providers Care Stockbroking Dealer Name Role Phone Sal Young Primary Care Provider Allergies Allergen (clinical drug ingredient) Drug/Non Drug Allergy documented on EMR Reaction Allergy Type Onset Date Status sulfamethoxazole / trimethoprim Bactrim DS rash Drug Allergy Active Results Component Value Reference Range Notes Complete Blood Count Auto Di ff Reviewed date:02/22/2024 12:45:51 PM Interpretation: Performing Lab:[facility], [address] [place] [phone] Notes/Report: White Blood Count 6.4 4.8-10.8 X10*3/uL [...] NRBC Abs Auto 0.000 0.0-0.012 X10*3/uL Comprehensive [place]. Panel Fa st Reviewed date:02/22/2024 12:47:01 PM Interpretation: Performing Lab:[facility], [address] [place] [phone] Notes/Report: Sodium 138 135-145 mmol/L Potassium 3.3 [...] Panel Reviewed date:02/22/2024 12:39:16 PM Interpretation: Performing Lab:[facility], [address] [place] [phone] Notes/Report: Triglycerides 118 <150 mg/dL Desirable Triglyceride: [...] t Reviewed date:02/22/2024 12:46:43 PM Interpretation: Performing Lab:[facility], [address] [place] [phone] Notes/Report: [id number] Urine, Clean Catch Color Urine Dark Yellow Appearance Urine Clear PH 6.5 5.0-9.0 Glucose Urine UA Negative Negative mg/dL Urine Blood Negative Negative Specific [place] - Urine >= 1.030 1.005-1.025 Urine Protein Trace Neg-Trace mg/dL Urine Ketones Trace Negative mg/dL Nitrite Urine Negative Negative Leukocyte Esterase Urine Trace Negative RBC Urine 0-2 0-2 /HPF WBC Urine 0-5 0-5 /HPF Squamous Epithelial Cell Urine 6-10 0-2 /HPF Bacteria Urine 1+ None Seen Hyaline Casts Urine 3-5 0-2 /LPF IRON PROFILE Reviewed date:03/08/2024 12:58:34 PM Interpretation: Performing Lab:[facility], [address] [place] [phone] Notes/Report: Iron 45 30-160 mcg/dL Slight Hemolysis.Interpret result with caution. Total Iron Binding Capacity 417 228-428 mcg/d L Percent Iron Saturation 11 15-50 % Unsaturated Iron Binding 372 Complete Blood Count Auto Di ff (Not yet reviewed by provider) Interpretation: Performing Lab:[address] [phone] Notes/Report: White Blood Count 8.2 4.8-10.8 X10*3/uL Red Blood Count 4.45 4.20-5.50 X10*6/uL Hemoglobin 11.8 12.0-16.0 g/dl Hematocrit 37.4 37.0-47.0 % Mean Corpuscular Volume 84.0 80.0-98.0 fL Mean Corpuscular Hemoglobin 26.5 27.0-33.0 pg Mean Corpuscular HGB Conc 31.6 31.0-35.0 g/dl Red Cell Distribution Width 15.7 11.0-16.0 % Platelet Count 246 160-400 X10*3/uL Mean Platelet Volume 11.2 9.4-12.3 fL Neutrophils Percent Auto 51.0 45-73 % Imm Gran Pct Auto 0.2 0.0-0.4 % Lymphocytes Percent Auto 40.0 20-40 % Monocytes Percent Auto 5.6 2-11 % Eosinophils Percent Auto 2.8 0-4 % Basophils Percent Auto 0.4 0-2 % NRBC Pct Auto 0.0 0.0-0.2 /100WBC Neutrophils Absolute Auto 4.2 2.0-8.3 x10*3/u L Imm Gran Abs Auto 0.02 0.00-0.03 X10*3/uL Lymphocytes Absolute Auto 3.3 1.2-4.9 X10*3/u L Monocytes Absolute Auto 0.5 0.1-1.2 X10*3/uL Eosinophils Absolute Auto 0.2 0.0-0.4 X10*3/u L Basophils Absolute Auto 0.0 0.0-0.2 X10*3/uL NRBC Abs Auto 0.000 0.0-0.012 X10*3/uL IRON PROFILE (Not yet review ed by provider) Interpretation: Performing Lab:[facility], [address] [place] [address] [place] [address] Notes/Report: Iron 42 30-160 mcg/dL Total Iron Binding Capacity 360 228-428 mcg/d L Percent Iron Saturation 12 15-50 % Unsaturated Iron Binding 318 Reason For Referral No Information Medications Medication SIG (Take, Route, Frequency, Duration) Notes Start Date End Date Status Sprintec 28 0.25-35 MG-MCG TAKE 1 TABLET BY MOUTH EVERY DAY Oral for 28 Active Sertraline HCl 50 MG TAKE ONE TABLET BY MOUTH EVERY DAY for 90 Active rOPINIRole HCl 0.5 MG TAKE ONE TABLET BY MOUTH 1-3 HOURS BEFORE BEDTIME for 30 Active ZyrTEC Allergy 10 MG 1 tablet Orally Onc e a day Active Meclizine HCl 25 MG 1 tablet as needed Orally Once a day Not-Taking Omeprazole 40 MG 1 capsule 30 minutes before morning meal Orally Once a day 03/16/2023 Active Ventolin HFA 108 (90 Base) MCG/ACT 2 puffs as needed Inhalation every 6 hrs for 30 days 01/25/2018 Not-Taking Triamterene-HCTZ 37.5-25 MG TAKE ONE CAPSULE BY MOUTH EVERY MORNING Active Immunizations Vaccine Route Administration Date Status Comme nts Flu Vaccine Unknown 06/09/2011 Administered TDaP Unknown 03/10/2012 Administered Flu Vaccine IM Intramuscular 03/08/2015 Administered pt re cieved the vaccine at the [facility] in [place]. Fluarix Quadrivalent IM Intramuscular 12/19/2016 Administe red [...] Unknown 06/26/2014 Refused Tetanus Unknown 03/10/2012 Pending Social History Tobacco Use: Social History Observation Description Date Details (start date - stop date) Never Smoker NA - NA Tobacco Use/Smoking Question Answer Notes Patient is a nonsmoker Additional Findings: Tobacco Non-User Cu rrent non-smoker, currently using no form of tobacco Alcohol Screen Question Answer Notes Did you have a drink containing alcohol in the p ast year? No Points 0 Interpretation Negative Problems Problem Type SNOMED Code ICD Code Onset Dates Problem Status W/U Status Risk Notes Problem 779298924 Thrombocytopenia (D69.6) Active confirmed Problem 99124947 Anxiety (F41.9) Active confirmed Problem 822642349 Other neutropeni a (D70.8) Active confirmed Problem 365543539 Gastroesophageal reflux disease without esophagitis (K21.9) Active confirmed Problem 198741304 Esophageal dysmotility (K22.4) Active confirmed Problem 83318498 Restless leg (G25.81) Active confirmed Problem 39884832 Carpal tunnel syndrome of left wrist (G56.02) Active confirmed Problem 59875274 CLARA (obstructive sleep apnea) (G47.33) Active confirmed Problem 762116119 BMI 40.0-44.9, a dult (Z68.41) Active confirmed Problem 058855001 Temporary low platelet count (D69.6) Active confirmed Problem 802739852 Mild intermitten t asthmatic bronchitis with acute exacerbation (J45.21) Active confirmed Problem 56936935 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 Vital Signs Blood pressure diastolic 90 mm Hg 04/07/2024 shola ght is up 6 pounds since 02-29-24 Height 66.50 in 04/07/2024 weight is up 6 pounds since 02-29-24 Blood pressure systolic 132 mm Hg 04/07/2024 weig ht is up 6 pounds since 02-29-24 Weight 291 lbs 04/07/2024 weight is up 6 pounds since 02-29-24 BMI 46.26 kg/m2 04/07/2024 weight is up 6 pounds since 02-29-24 Encounters Encounter Location Date Provider Diagnosis Sal Young MD [address] [place] [address] Drive [address] [place], [place] [id number] 02/22/2024 Sal Young Blood tests for rout ine general physical examination Z00.00 ; Encounter for immunization Z23 and Thrombocytopenia D69.6 Sal Young MD [address] [place] [id number] 03/08/2024 Sal Young Anemia D64.9 Sal Young MD [address] [id number] 10/25/2024 Sal Young Esophageal dysmotili ty K22.4 Sal Young MD [address] [id number] 02/29/2024 Sal Young Mild anemia D64.9 ; Annual physical exam Z00.00 ; Gastroesophageal reflux disease without esophagitis K21.9 ; CLARA (obstructive sleep apnea) G47.33 ; Restless leg G25.81 and Depression screening Z13.31 Sal Young MD [address] [id number] 04/07/2024 Sal Young Esophageal dysmotili ty K22.4 ; Restless leg G25.81 ; Iron deficiency E61.1 and Borderline hypertension R03.0 Sal Young MD [address] [id number] 03/15/2024 Sal Young MD [address] [place] [address] Drive [address] [id number] 05/20/2024 Sal Young Assessments Encounter Date Diagnosis (ICD Code) Assessment Notes Treatment Notes Treatment Clinical Notes Section Notes 02/22/2024 Blood tests for routine general physical examination (ICD-10 - Z00.00) 02/22/2024 Encounter for immunization (ICD-10 - Z23) 03/08/2024 Anemia (ICD-10 - D64.9) 10/25/2024 Esophageal dysmotility (ICD-10 - K22.4) 02/29/2024 Mild anemia (ICD-10 - D64.9) having heavy periods every other month, will cntnue to monitor 02/29/2024 Annual physical exam (ICD-10 - Z00.00) labs reviewed and discussed with patient 04/07/2024 Esophageal dysmotility (ICD-10 - K22.4) need results of upper endoscopy from weight management doctor 04/07/2024 Restless leg (ICD-10 - G25.81) doing well on ropinerol 02/22/2024 Thrombocytopenia (ICD-10 - D69.6) 02/29/2024 Gastroesophageal reflux disease without esophagitis (ICD-10 - K21.9) doing well on pantoprazole, will contnue current regiment 04/07/2024 Iron deficiency (ICD-10 - E61.1) has heavy periods. 02/29/2024 CLARA (obstructive sleep apnea) (ICD-10 - G47.33) using cpapnightly 04/07/2024 Borderline hypertension (ICD-10 - R03.0) bp is probably a little lower than the reading as cuff is too small for her arm 02/29/2024 Restless leg (ICD-10 - G25.81) will try requip 02/29/2024 Depression screening (ICD-10 - Z13.31) negative screen Plan Of Treatment Pending Test Test Name Order Date XR GI SERIES 02/19/2023 Complete Blood Count Auto Diff IRON PROFILE 10/25/2024 Next Appt Details Provider Name:Sal Sheldon ier, 11/01/2024 11:15:00 AM, [address] [place] [address], [address], [phone], Provider Name:Sal Sheldon ier, 02/27/2025 08:00:00 AM, [address] [place] [address], [address], [phone], Provider Name:Sal Sheldon ier, 03/06/2025 10:30:00 AM, [address] [place] [address], [address], [phone], Insurance Providers Payer Name Payer Address Payer Phone Subscriber Number Group Number Insured Name Patient Relationship to Insured Coverage Start Date Coverage End Date R [address] [address] [place] [address] [id number] [phone] Felisa Damon Self - patient is the insured Medical (General) History Surgical History Surgery Date(Month/Year) ORIF Rt Radial Head - Dr. Dickerson 8
--- OUTSIDE RECORDS SUMMARY | 2024-10-25 11:18 | XMS_ITS | Clinical Summary ---
Author Organization [facility] Address [address] [phone] Phone Care Team Providers Care Nursing Resident Name Role Phone Pcp, Unknown Primary Care Provider Unavailabl e Social History Tobacco Use Types Packs/Day Years Used Date Smoking Tobacco: Never Assessed Education Answer Date Recorded Are you interested in more education? Not on harrison e 08/02/2022 Are you concerned about learning? Not on file 08/02/2022 No 08/02/2022 No 08/02/2022 Digital Access Answer Date Recorded No 09/02/2022 No 09/02/2022 Reliable internet access at home? Not on file 09/02/2022 Device with a working camera? Not on file Comments Unknown Sex and Gender Information Value Date Recorded Sex Assigned at Not on file Legal Sex Female 7:06 PM EDT Gender Identity Not on file Sexual Orientation Not on file Plan of Treatment Not on file Medical Devices Not on file Insurance [facility] [address] [place] [address] [place], [place] [id number] [place] [address] [place] [address] [place] [place] [id number] [place] [address] [address] [facility] Care Teams Nursing Resident Relationship Specialty Start Date End Date Pcp, Unknown PCP - General 10/09/20 Additional Source Comments The information contained in this document represents components of the legal health record. It is not the complete legal health record.[facility]
--- OUTSIDE RECORDS SUMMARY | 2024-10-25 11:18 | XMS_ITS | Data Portability ---
Author Organization [place] - [facility], Allergy Address [address] [place] [address] Care Team Providers Care Ground [employer] Contractor Name Role Phone AALIYAH POLANCO Primary Care [...] mg-hydrochl orothiazide 25 mg tablet 2023 024 [facility] [address], [address] [place], [address], 15:34:23 Patient TargetsNo targets recorded. Patient InstructionsNo instructions recorded. Reason for Referral None Reported. Results Created Date Observation Date Name Description Value Unit Range Abnormal Flag Note LastModifiedBy Organization Detail LastModifiedTime 11/26/19 24 05/18/2019 imagi ng/di agnos tic resul t No observ ation record ed. [email or web address] Not Available 00:09:32 11/26/19 24 09/30/2018 imagi ng/di paulos tic resul t No observ ation record ed. [email or web address] Not Available 00:11:23 11/26/19 24 10/13/2018 audio gram No observ ation record ed. [email or web address] Not Available 00:11:24 Result Notes None recorded. Problems Name Problem SNOMED Code Status Onset Date Resolution Date Notes Provider Name and Address Organization Details Recorded Time Dizziness and giddiness 201628100 Active 2019 Dizziness and giddiness ; Note: Date Diagnosed : 05/18/2019 12:20 PM (R42) Not Available [facility] 4 02:22:45 M ni re's disease 85274539 Active 2019 Meniere's disease, right ear; Note: Date Diagnosed : 05/18/2019 12:19 PM (H81.01) Not Available [facility] 4 02:22:36 Sensorine ural hearing loss 09638503 Active 2019 Sensorine ural hearing loss, unilatera l, right ear, with unrestric leonidas hearing on the contralat eral side; Note: Date Diagnosed : 05/18/2019 10:31 AM (H90.41) Not Available [facility] 4 02:22:54 Allergic rhinitis 76691916 Active 2019 Allergic Rhinitis; Note: Date Diagnosed : 07/20/2019 10:18 AM (477.9) Note: Date Diagnosed : 07/20/2019 10:18 AM (477.9) Allergi c rhinitis: Due to other allergen; Note: Date Diagnosed : 05/30/2019 10:03 AM (477.8) Note: Date Diagnosed : 05/30/2019 10:03 AM (477.8) ; Start Date : 0 Not Available [facility] 4 00:55:55 Allergic rhinitis caused by pollen 87494458 Active 2019 Allergic rhinitis due to pollen; Note: Date Diagnosed : 01/04/2020 8:56 AM (J30.1) Allergi c rhinitis due to pollen; Note: Date Diagnosed : 07/07/2019 10:26 AM (J30.1) ; Start Date : 0 Not Available [facility] 4 02:22:30 Meniere's disease of right inner ear 11821439148 83822 Active 2023 ELIEZER WALL MD [address] [facility],[place] [address], [place], [address] , [facility] 4 15:33:39 Problem Notes None recorded. Procedures Surgical History Date Name Laterality Status Provider Name and Address Organization Details Recorded Time 10/01/2023 Comp Audio with Tymps - 58818 & 02393 completed DMITRY FARAH [address] [facility],[place] [address], [place], [address], [facility] 10/01/2023 14:31:40 Imaging Results None recorded. Procedure Notes None recorded. Medical Equipment None Reported. Allergies Allergen ID Allergen Name Allergen Category Reaction Reaction Severity Criticality Documentation Date Start Date Code Code System Note Provider Name and Address Organization Details Recorded Time 19218 Substance with sulfonami de structure and antibacte rial mechanism of action (substanc e) medicatio n other Not available Not available 08/18/2023 19863 8003 SNOMED React ion: unkno wn, unspe cifie d;; Not Available [facility] 4 00:54:33 Medications Name Sig Start Date Stop Date Status Note LastModified by Organization Details LastModified Time Prescript ion - Prior Authoriza tion Request active Script Copy/Kerrie or Auth^Scr ipt Copy/Kerrie or Auth_ [id number] Not Available Not Available Not Available norgestim ate 0.25 mg-ethiny l estradiol 0.035 mg tablet active Not Available Not Available [...] spray,pam pension 2019 active Medicati on ID: [id number] D uration Value: 30 Brand Name: fluticas one propiona te Send Method: E-Prescr ibed Sub s Allowed: subs OK Medic ationGen ericName : fluticas one propiona te Not Available Not Available Not Available sertralin e 50 mg tablet active Not Available Not Available Not Available Pepcid 09/30 completed Medicati on ID: [id number] B rand Name: pepcid S end Method: E-Prescr ibed Sub s Allowed: subs OK Medic ationGen ericName : pepcid Bright fischer n ID: [id number] B rand Name: pepcid S end Method: E-Prescr ibed Sub s Allowed: subs OK Medic ationGen ericName : pepcid Not Available Not Available Not Available meclizine 1 tablet by mouth 2019 active Medicati on ID: [id number] B rand Name: meclizin e Send Method: E-Prescr ibed Sub s Allowed: subs OK Medic ationGen ericName : meclizin e Not Available Not Available Not Available EpiPen 2-Tu 0.3 mg/0.3 mL injection , auto-inje ctor Inject 1 pen injector intramus cularly single dose 2022 active Medicati on ID: [id number] D uration Value: 1 Brand Name: EpiPen 2-Tu Se nd Method: E-Prescr ibed Sub s Allowed: subs OK Medic ationGen ericName : EpiPen 2-Tu Not Available Not Available Not Available Vitals Date Recorded Body height Body mass index (BMI) Body weight Provider Name and Address Organization Details Last Updated DateTime 10/01/2023 165.1 cm 45.8 kg/m2 423086.9 g Isabel Fitch [place] - [facility] 10/01/2023 14:02:39 Social History None recorded. Functional Status None recorded. Mental Status None recorded. Family History Nothing Reported. Medical History No medical history recorded. Gynecological HistoryNo gynecological history recorded. Obstetrics History GPAL:G 0 P 0 0 0 0 Past Encounters Encounter ID Performer Location Encounter Start Date Encounter Closed Date Diagnosis/Indication Diagnosis SNOMED-CT Code Diagnosis ICD10 Code Diagnosis Note [id number] ELIEZER WALL MD [facility] on [address] [place] [address] 10/01/2023 14:01:40 10/01/2023 15:42:46 Sensorineural hearing loss 33161016 H90.41 Audiologic al evaluation results: Right ear: Moderate low frequency sensorineu ral hearing loss rising to normal with excellent word recognitio n. Left ear: Normal hearing with excellent word recognitio n. Tympanomet ry: Right Ear:Type A Left Ear:Type A M ni re's disease 22883205 H81.01 Meniere's disease of right inner ear 1103442607 019701 H81.01 Allergic rhinitis 123919 04 J30.9 Dizziness and giddiness 415805833 R42 Health Concerns Section Related Observation LastModified by Organization Detai ls LastModified Time None Recorded Concern Status LastModified by Organization Details LastModified Time None Recorded Advance Directives Directive None Recorded Payers Insurance Date Sequence Insurance Name Policy Number Policy Stein Covered Member ID Stein Member ID Guarantor Name 10/01/2023 1 [facility] [id number] Felisa Damon [id number] Felisa Damon Notes Date Note Type Note Provider Name [...] Sudafed, no nasal steroids. ELIEZER WALL MD [address] [place] [address], [place], [address], [facility] - [facility] 10/01/2023 16:44:11 OBGyn Episode No OBEpisode recorded.
== END 2024-10-25 10:15 | disposition home or self-care (01) ==
LOC: HO.LNP 10:14
PROVIDERS: Visit Provider Internal Medicine
DX: K22.4 Dyskinesia of esophagus (principal)
CPT/HCPCS: 83540; 85025

== ENCOUNTER 2025-02-27 11:38 | Outpatient (REF) | payer OTHER, SELFPAY ==
[2025-02-27 11:40] LABS: MANUAL DIFF FLAG NO
[2025-02-27 11:47] LABS: Hematocrit 40.0 % (37.0-47.0); Hemoglobin 12.6 g/dl (12.0-16.0); Imm Gran Abs Auto 0.01 X10*3/uL (0.00-0.03); Imm Gran Pct Auto 0.2 % (0.0-0.4); Lymphocytes Absolute Auto 2.4 X10*3/uL (1.2-4.9); Mean Corpuscular HGB Conc 31.5 g/dl (31.0-35.0); Mean Corpuscular Hemoglobin 27.9 pg (27.0-33.0); Mean Corpuscular Volume 88.5 fL (80.0-98.0); NRBC Abs Auto 0.000 X10*3/uL (0.0-0.012); NRBC Pct Auto 0.0 /100WBC (0.0-0.2); Platelet Count 232 X10*3/uL (160-400); Red Blood Count 4.52 X10*6/uL (4.20-5.50); White Blood Count 6.5 X10*3/uL (4.8-10.8)
[2025-02-27 11:50] LABS: Appearance Urine Cloudy; Glucose Urine UA Negative (Negative); PH 6.5 (5.0-9.0); Specific Gravity - Urine >= 1.030 (1.005-1.025)
--- OUTSIDE RECORDS SUMMARY | 2025-02-27 15:29 | XMS_ITS | Data Portability ---
Author Organization [place] - [facility], Allergy Address [address] [address] Care Team Providers Care Dean Of Students Name Role Phone AALIYAH POLANCO Primary Care Provider [phone] Assessment Encounter Date Assessment Date Assessment LastModified [...] Organization Details Last Modified Time Details Appointments Hearing Test 2025 01:00P M Hearing Test Not available Not available Not available Establish ed 15 2025 01:30P M ELIEZER WALL MD Not available Not available Not available Lab None recorded. Referral None recorded. Procedures None recorded. Surgeries None recorded. Imaging None recorded. Medication Orders triamtere ne 37.5 mg-hydroc hlorothia zide 25 mg capsule 2024 025 [facility], [address] [place], [address], 12/15/2024 15:16:28 triamtere ne 37.5 mg-hydroc hlorothia zide 25 mg tablet 2023 024 [facility], [address] [facility] [place], [address], 10/01/2023 15:34:23 Patient TargetsNo targets recorded. Patient InstructionsNo instructions recorded. Reason for Referral None Reported. Results Created Date Observation Date Name Description Value Unit Range Abnormal Flag Note LastModifiedBy Organization Detail LastModifiedTime 11/26/19 24 05/18/2019 imagi ng/di agnos tic resul t No observ ation record ed. [email or web address] Not Available 00:09:32 11/26/19 24 09/30/2018 imagi ng/di agnos tic resul t No observ ation record ed. [email or web address] Not Available 00:11:23 11/26/19 24 10/13/2018 audio gram No observ ation record ed. [email or web address] Not Available 00:11:24 12/28/19 25 12/15/2024 audio gram No observ ation record ed. [email or web address] Not Available 2024 12:54:14 Result Notes None recorded. Problems Name Problem SNOMED Code Status Onset Date Resolution Date Notes Provider Name and Address Organization Details Recorded Time Dizziness and giddiness 085433462 Active 2019 Dizziness and giddiness ; Note: Date Diagnosed : 05/18/2019 12:20 PM (R42) Not Available [facility] 4 02:22:45 M ni re's disease 77828372 Active 2019 Meniere's disease, right ear; Note: Date Diagnosed : 05/18/2019 12:19 PM (H81.01) Not Available [facility] 4 02:22:36 Sensorine ural hearing loss 78645977 Active 2019 Sensorine ural hearing loss, unilatera l, right ear, with unrestric leonidas hearing on the contralat eral side; Note: Date Diagnosed : 05/18/2019 10:31 AM (H90.41) Not Available [facility] 4 02:22:54 Allergic rhinitis 21758636 Active 2019 Allergic Rhinitis; Note: Date Diagnosed : 07/20/2019 10:18 AM (477.9) Note: Date Diagnosed : 07/20/2019 10:18 AM (477.9) Allergi c rhinitis: Due to other allergen; Note: Date Diagnosed : 05/30/2019 10:03 AM (477.8) Note: Date Diagnosed : 05/30/2019 10:03 AM (477.8) ; Start Date : 0 Not Available [facility] 4 00:55:55 Allergic rhinitis caused by pollen 92172990 Active 2019 Allergic rhinitis due to pollen; Note: Date Diagnosed : 01/04/2020 8:56 AM (J30.1) Allergi c rhinitis due to pollen; Note: Date Diagnosed : 07/07/2019 10:26 AM (J30.1) ; Start Date : 0 Not Available [facility] 4 02:22:30 Meniere's disease of right inner ear 58925454677 92046 Active 2023 ELIEZER WALL MD [address] [place] [address], [address] , [facility] 4 15:33:39 Problem Notes None recorded. Procedures Surgical History Date Name Laterality Status Provider Name and Address Organization Details Recorded Time 12/15/2024 Air & Speech Audio with Tymps - 09921, 74654 & 49781 completed HILARY HUYNH [address], [address], [facility] 12/15/2024 15:00:47 10/01/2023 Comp Audio with Tymps - 40509 & 04707 completed DMITRY FARAH [address] [place] [address], [address], [facility] 10/01/2023 14:31:40 Imaging Results None recorded. Procedure Notes None recorded. Medical Equipment None Reported. Allergies Allergen ID Allergen Name Allergen Category Reaction Reaction Severity Criticality Documentation Date Start Date Code Code System Note Provider Name and Address Organization Details Recorded Time 48275 Substance with sulfonami de structure and antibacte rial mechanism of action (substanc e) medicatio n other Not available Not available 08/18/2023 05714 8003 SNOMED React ion: unkno wn, unspe cifie d;; Not Available [facility] 4 00:54:33 Medications Name Sig Start Date Stop Date Status Note LastModified by Organization Details LastModified Time Prescript ion - Prior Authoriza tion Request active Script Copy/Kerrie or Auth^Scr ipt Copy/Kerrie or Auth_ 13530 Not Available Not Available Not Available norgestim ate 0.25 mg-ethiny l estradiol 0.035 mg tablet active Not Available Not Available Not Available omeprazol e 40 mg capsule,d elayed release active Not Available Not Available Not Available triamtere ne 37.5 mg-hydroc hlorothia zide 25 mg capsule Take 1 capsule by mouth once a day as directed 2024 active Not Available Not Available Not Avai lable amoxicill in 875 mg tablet 09/30 completed Not Available Not Available Not Available triamtere ne 37.5 mg-hydroc hlorothia zide 25 mg tablet Take 1 tablet every day by oral route. active Not Available Not Available No t Available fluticaso ne propionat e 50 mcg/actua tion nasal spray,pam pension 2019 active Medicati on ID: [id number] D uration Value: 30 Brand Name: fluticas one propiona te Send Method: E-Prescr ibed Sub s Allowed: subs OK Medic ationGen ericName : fluticas one propiona te Not Available Not Available Not Available sertralin e 50 mg tablet active Not Available Not Available Not Available Pepcid 09/30 completed Medicati on ID: [id number] B rand Name: pepcid S end Method: E-Prescr ibed Sub s Allowed: subs OK Medic ationGen ericName : pepcid Bright nunezo n ID: [id number] B rand Name: pepcid S end Method: E-Prescr ibed Sub s Allowed: subs OK Medic ationGen ericName : pepcid Not Available Not Available Not Available meclizine 1 tablet by mouth 2019 active Medicati on ID: [id number] B rand Name: meclizin e Send Method: E-Prescr ibed Sub s Allowed: subs OK Medic ationGen ericName : meclizin e Not Available Not Available Not Available EpiPen 2-Tu 0.3 mg/0.3 mL injection , auto-inje ctor Inject 1 pen injector intramus cularly single dose 2022 active Medicati on ID: [id number] D uration Value: 1 Brand Name: EpiPen 2-Tu Se nd Method: E-Prescr ibed Sub s Allowed: subs OK Medic ationGen ericName : EpiPen 2-Tu Not Available Not Available Not Available Vitals Date Recorded Body height Body mass index (BMI) Body weight Provider Name and Address Organization Details Last Updated DateTime 10/01/2023 165.1 cm 45.8 kg/m2 612321.9 g Isabel Fitch [place] - [facility] 10/01/2023 14:02:39 Social History None recorded. Functional Status None recorded. Mental Status None recorded. Family History Nothing Reported. Medical History No medical history recorded. Gynecological HistoryNo gynecological history recorded. Obstetrics History GPAL:G 0 P 0 0 0 0 Past Encounters Encounter ID Performer Location Encounter Start Date Encounter Closed Date Diagnosis/Indication Diagnosis SNOMED-CT Code Diagnosis ICD10 Code Diagnosis IMO Codes Diagnosis Note [id number] ELIEZER WALL MD [facility] on [address] [place] [address] 10/01/2023 14:01:40 10/01/2023 15:42:46 Sensorineural hearing loss 58864111 H90.41 Audiologic al evaluation results: Right ear: Moderate low frequency sensorineu ral hearing loss rising to normal with excellent word recognitio n. Left ear: Normal hearing with excellent word recognitio n. Tympanomet ry: Right Ear:Type A Left Ear:Type A M ni re's disease 29836952 H81.01 Meniere's disease of right inner ear 8757938724 739053 H81.01 Allergic rhinitis 874656 04 J30.9 Dizziness and giddiness 527377522 R42 [id number] ELIEZER WALL MD [facility] [address] [place] [address] 12/15/2024 14:46:18 12/15/2024 15:21:12 Sensorineural hearing loss 62048397 H90.41 M ni re's disease 93852514 H81.01 She is doing well, no episodes of vertigo. Feels hearing is stable. Continue Dyazide. Will recheck hearing next year. Allergic rhinitis 124506 04 J30.9 She is no longer on slit. She can continue antihistam sunshine as needed. Health Concerns Section Related Observation LastModified by Organization Detai ls LastModified Time None Recorded Concern Status LastModified by Organization Details LastModified Time None Recorded Advance Directives Directive None Recorded Payers Insurance Date Sequence Insurance Name Policy Number Policy Stein Covered Member ID Stein Member ID Guarantor Name 02/16/2025 1 [facility] [id number] Lio Damon [id number] Felisa Nelson Notes Date Note Type Note Provider Name and Address Organization Details Recorded Time 10/01/2023 text/html 43 yo female here for f/u of SLIT and evaluation of her Meniere's disease. Started SLIT 07/2019. Also tolerating the dyazide well. Thinks it is really effective. ears will sometimes feel full.MRI 2018 no retrocochlear massAllergy testing 2019 multiple sensitivities Takes Zyrtec, occasional Sudafed, no nasal steroids. ELIEZER WALL MD [address] [place] [address],[address], [address], [facility] 10/01/2023 16:44:11 12/15/2024 text/html 44 yo female here for f/u of allergies and evaluation of her Meniere's disease. Started SLIT 07/2019 and has since stopped. Tolerating the dyazide well. Thinks it is really effective. ears will sometimes feel full.MRI 2018 no retrocochlear massAllergy testing 2019 multiple sensitivities, antihistamines as needed.Stopped using the drops. ELIEZER WALL MD [address] [place] [address],[address], [address], [facility] 12/18/2024 12:11:32 OBGyn Episode No OBEpisode recorded.
--- OUTSIDE RECORDS SUMMARY | 2025-02-27 15:29 | XMS_ITS | Continuity of Care Document ---
Author Organization [place] - [facility], [facility] Address [address] [place] [address] Care Team Providers Care Portainer Operator Name Role Phone AALIYAH POLANCO Primary Care Provider Assessment No assessment recorded. Plan of Treatment Reminders Order Date Submit [...] hlorothia zide 25 mg capsule 2024 025 [id number], [address] [place], [address], 12/15/2024 15:16:28 Patient TargetsNo targets recorded. Patient InstructionsNo instructions recorded. Reason for Referral None Reported. Results Created Date Observation Date Name Description Value Unit Range Abnormal Flag Note LastModifiedBy Organization Detail LastModifiedTime 12/28/1912/15/2024 audio gram No observ ation record ed. [email or web address] Not Available 2024 12:54:14 Result Notes None recorded. Problems Name Problem SNOMED Code Status Onset Date Resolution Date Notes Provider Name and Address Organization Details Recorded Time Dizziness and giddiness 972227073 Active 2019 Dizziness and giddiness ; Note: Date Diagnosed : 05/18/2019 12:20 PM (R42) Not Available [facility] 4 02:22:45 M ni re's disease 66007196 Active 2019 Meniere's disease, right ear; Note: Date Diagnosed : 05/18/2019 12:19 PM (H81.01) Not Available [facility] 4 02:22:36 Sensorine ural hearing loss 50419115 Active 2019 Sensorine ural hearing loss, unilatera l, right ear, with unrestric leonidas hearing on the contralat eral side; Note: Date Diagnosed : 05/18/2019 10:31 AM (H90.41) Not Available [facility] 4 02:22:54 Allergic rhinitis 65979146 Active 2019 Allergic Rhinitis; Note: Date Diagnosed : 07/20/2019 10:18 AM (477.9) Note: Date Diagnosed : 07/20/2019 10:18 AM (477.9) Allergi c rhinitis: Due to other allergen; Note: Date Diagnosed : 05/30/2019 10:03 AM (477.8) Note: Date Diagnosed : 05/30/2019 10:03 AM (477.8) ; Start Date : 0 Not Available [facility] 4 00:55:55 Allergic rhinitis caused by pollen 57138803 Active 2019 Allergic rhinitis due to pollen; Note: Date Diagnosed : 01/04/2020 8:56 AM (J30.1) Allergi c rhinitis due to pollen; Note: Date Diagnosed : 07/07/2019 10:26 AM (J30.1) ; Start Date : 0 Not Available [facility] 4 02:22:30 Meniere's disease of right inner ear [id number] 61447 Active 2023 ELIEZER WALL MD [address] [place] [address], [facility] [place], [address] , [facility] - [facility] 4 15:33:39 Problem Notes None recorded. Procedures Surgical History Date Name Laterality Status Provider Name and Address Organization Details Recorded Time 12/15/2024 Air & Speech Audio with Tymps - 42192, 36538 & 78670 completed HILARY HUYNH, AUD [address] [facility],[place] [address], [place], [address], [facility] 12/15/2024 15:00:47 10/01/2023 Comp Audio with Tymps - 59454 & 34313 completed MARK YANCEY, AUD [address] [facility] [address], [place], [address], [facility] 10/01/2023 14:31:40 Imaging Results None recorded. Procedure Notes None recorded. Medical Equipment None Reported. Allergies Allergen ID Allergen Name Allergen Category Reaction Reaction Severity Criticality Documentation Date Start Date Code Code System Note Provider Name and Address Organization Details Recorded Time 89396 Substance with sulfonami de structure and antibacte rial mechanism of action (substanc e) medicatio n other Not available Not available 08/18/2023 [id number] 8003 SNOMED React ion: unkno wn, unspe cifie d;; Not Available [facility] 4 00:54:33 Medications Name Sig Start Date Stop Date Status Note LastModified by Organization Details LastModified Time Prescript ion - Prior Authoriza tion Request active Script Copy/Kerrie or Auth^Scr ipt Copy/Kerrie or Auth_ [id number] Not Available Not Available Not Available norgestim [...] spray,pam pension 2019 active Medicati on ID: [id number] D uration Value: 30 Brand Name: fluticas one propiona te Send Method: E-Prescr ibed Sub s Allowed: subs OK Medic ationGen ericName : fluticas one propiona te Not Available Not Available Not Available sertralin e 50 mg tablet active Not Available Not Available Not Available Pepcid 09/30 completed Medicati on ID: [id number] B rand Name: pepcid S end Method: E-Prescr ibed Sub s Allowed: subs OK Medic ationGen ericName : pepcid Bright nunezo n ID: [id number] B rand Name: pepcid S end Method: E-Prescr ibed Sub s Allowed: subs OK Medic ationGen ericName : pepcid Not Available Not Available Not Available meclizine 1 tablet by mouth 2019 active Medicati on ID: [id number] B rand Name: meclizin e Send Method: E-Prescr ibed Sub s Allowed: subs OK Medic ationGen ericName : meclizin e Not Available Not Available Not Available EpiPen 2-Tu 0.3 mg/0.3 mL injection , auto-inje ctor Inject 1 pen injector intramus cularly single dose 2022 active Medicati on ID: [id number] D uration Value: 1 Brand Name: EpiPen 2-Tu Se nd Method: E-Prescr ibed Sub s Allowed: subs OK Medic ationGen ericName : EpiPen 2-Tu Not Available Not Available Not Available Vitals None Recorded Social History None recorded. Functional Status None recorded. Mental Status None recorded. Family History Nothing Reported. Medical History No medical history recorded. Gynecological HistoryNo gynecological history recorded. Obstetrics History GPAL:G 0 P 0 0 0 0 Past Encounters Encounter ID Performer Location Encounter Start Date Encounter Closed Date Diagnosis/Indication Diagnosis SNOMED-CT Code Diagnosis ICD10 Code Diagnosis IMO Codes Diagnosis Note [id number] ELIEZER WALL MD [facility] on [address] [place] [phone] 12/15/2024 14:46:18 12/15/2024 15:21:12 Sensorineural hearing loss 28224502 H90.41 M ni re's disease 91311300 H81.01 She is doing well, no episodes of vertigo. Feels hearing is stable. Continue Dyazide. Will recheck hearing next year. Allergic rhinitis 087499 04 J30.9 She is no longer on slit. She can continue antihistam sunshine as needed. Health Concerns Section Related Observation LastModified by Organization Detai ls LastModified Time None Recorded Concern Status LastModified by Organization Details LastModified Time None Recorded Payers Encounter Date Sequence Insurance Name Policy Number Policy Stein Covered Member ID Stein Member ID Guarantor Name 12/15/2024 1 [facility] [id number] Lio Damon [id number] Felisa Damon Notes Date Note Type Note Provider Name and Address Organization Details Recorded Time 12/15/2024 text/html 44 yo female here for f/u of allergies and evaluation of her Meniere's disease. Started SLIT 07/2019 and has since stopped. Tolerating the dyazide well. Thinks it is really effective. ears will sometimes feel full.MRI 2018 no retrocochlear massAllergy testing 2019 multiple sensitivities, antihistamines as needed.Stopped using the drops. ELIEZER WALL MD [address] [place] [address], [phone], [facility] - [facility] 12/18/2024 12:11:32 OBGyn Episode No OBEpisode recorded.
--- OUTSIDE RECORDS SUMMARY | 2025-02-27 15:29 | XMS_ITS | Clinical Summary ---
Author Organization [facility] Address [address] [facility] [address] [place], [place] [id number] Phone Care Team Providers Care Tape Rules Printing Machine Operator Name Role Phone Pcp, Unknown Primary Care Provider Unavailabl e Social History Tobacco Use Types Packs/Day Years Used Date Smoking Tobacco: Never Assessed Education Answer Date Recorded Are you interested in more education? Not on harirson e 08/02/2022 Are you concerned about learning? [...] file Medical Devices Not on file Insurance [facility] UNITED [address] [place], [place] [id number] [place], [place] [id number] UNITED R R [place] [address] [place] [address] [facility] Care Teams Tape Rules Printing Machine Operator Relationship Specialty Start Date End Date Pcp, Unknown PCP - General 10/09/20 Additional Source Comments The information contained in this document represents components of the legal health record. It is not the complete legal health record.[facility]
[2025-02-27 16:09] LABS: Alanine Aminotransferase 37 U/L (0-31); Albumin Level 4.2 g/dL (3.5-5.0); Alkaline Phosphatase 146 U/L (39-117); Anion Gap 13 (12-20); Aspartate Amino Transferase 22 U/L (5-31); Blood Urea Nitrogen 12 mg/dL (9-16); Calcium 9.1 mg/dL (8.4-10.2); Carbon Dioxide 29 mmol/L (22-29); Chloride 102 mmol/L (96-108); Cholesterol 216 mg/dL (<200); Estimated Glomerular Filt Rate > 60; HDL Cholesterol 80 mg/dL (>40); Potassium 3.6 mmol/L (3.3-5.1); Sodium 140 mmol/L (135-145); Total Protein 7.4 g/dL (6.5-8.0); Triglycerides 115 mg/dL (<150)
== END 2025-02-27 11:39 | disposition home or self-care (01) ==
LOC: HO.LNP 11:38
PROVIDERS: Visit Provider Internal Medicine
DX: Z00.00 Encounter for general adult medical examination without abnormal findings (principal); Z13.6 Encounter for screening for cardiovascular disorders; D69.6 Thrombocytopenia, unspecified
CPT/HCPCS: 80053; 80061; 81001; 85025